=== PATIENT | female | born 1985 | race Caucasian/White ===

== ENCOUNTER → 2016-05-28 | Outpatient (CLI) | payer OTHER ==
[~2016-05-28] MED LIST: CLR10 PO; FERR1TAB23; MULT-506 PO
== END | disposition home or self-care (01) ==
LOC: C.LABSPEC 12:52
PROVIDERS: ATTEND Obstetrics & Gynecology
DX: Z34.93 Encounter for supervision of normal pregnancy, unspecified, third trimester (principal)

== ENCOUNTER 2016-06-08 10:01 | Outpatient (CLI) | payer OTHER ==
[~2016-06-08] VITALS: Ht 157.5 cm; Wt 77.5 kg
[~2016-06-08 10:01] MED LIST changes: -FERR1TAB23
[2016-06-08] MEDS ORDERED: FERR1TAB23 (11:05)
[2016-06-08 11:06] VITALS: Ht 157.5 cm; Wt 77.5 kg
--- NOTE | 2016-06-09 08:18 | EDITING REQUIRED CODING QUERY ---
DIAGNOSIS NEEDED To promote full compliance with coding requirements relating to patient care, physician participation is requested in all cases of modeler uncertainty. Please assist us with the question(s) below: Coding Question: The patient received care in labor and delivery on 06/08/16 as noted within the record. Please document the diagnosis that is being addressed by the medication/treatment. Provider Response: DIAGNOSIS: R/O PROM Thank you for your assistance, Nadeen Shafer - Test Deck Supervisor
== END 2016-06-08 11:50 | disposition home or self-care (01) ==
LOC: C.LD 10:01 → C.OPB 10:01 → EDSTATUS 06-13 10:14
PROVIDERS: ATTEND Obstetrics & Gynecology
DX: Z34.83 Encounter for supervision of other normal pregnancy, third trimester (principal); Z3A.39 39 weeks gestation of pregnancy

== ENCOUNTER 2016-06-13 13:09 | Outpatient (CLI) | payer OTHER ==
[~2016-06-13 13:09] MED LIST changes: -CLR10 PO; +FERR1TAB23
== END 2016-06-13 14:05 | disposition home or self-care (01) ==
LOC: C.OPB 13:09 → C.LD 13:09 → C.OPB 14:05
PROVIDERS: ATTEND Obstetrics & Gynecology
DX: O36.8130 Decreased fetal movements, third trimester, not applicable or unspecified (principal); Z3A.40 40 weeks gestation of pregnancy

== ENCOUNTER 2016-06-19 02:03 | Inpatient (IN) | payer OTHER ==
[~2016-06-19] VITALS: Ht 157.5 cm; Wt 79.0 kg
[2016-06-19] MEDS ORDERED: LACTATED RINGER'S 1000ML 1,000 ML IV SCH (02:37)
[2016-06-19] MEDS ORDERED: LACTATED RINGER'S 1000ML 1,000 ML IV PRN (02:37)
[2016-06-19] MEDS ORDERED: CEFAZOLIN IV 1,000 MG in DEXTROSE 5% 50ML 50 ML IV PRN (02:45)
[2016-06-19 02:57] LABS: HEMATOCRIT 37.9 % (37-47); MEAN CORPUSCULAR HEMOGLOBIN 31.9 pg (25-34); MEAN CORPUSCULAR HGB CONC 35.9 g/dl (32-36); MEAN PLATELET VOLUME 9.2 fL (7.4-10.4); PLATELET COUNT 208 K/uL (130-400); RED BLOOD COUNT 4.26 M/uL (4.2-5.4); WHITE BLOOD COUNT 10.41 K/uL (4.8-10.8)
[2016-06-19] MEDS ORDERED: CEFAZOLIN IV 2,000 MG in DEXTROSE 5% 50ML 50 ML IV ONE (03:00)
[2016-06-19] MEDS ORDERED: EpHEDrine SULFATE INJ 50 MG/ML AMP ONE (03:06)
[2016-06-19] MEDS ORDERED: BUPIVACAINE 0.25% 30 ML VIAL ONE (03:06)
[2016-06-19] MEDS ORDERED: FENTANYL 2MCG/ML ROPIV 1.25MG/ML 100ML BAG EPI ONE (03:06)
[2016-06-19] MEDS ORDERED: FENTANYL CITRATE INJ 50 MCG/1 ML 2 ML VIAL ONE (03:07)
[2016-06-19 03:29] VITALS: Ht 157.5 cm; Wt 79.0 kg
[2016-06-19] MEDS ORDERED: LACTATED RINGER'S 1000ML 500 ML IV PRN ×2 (04:21→07:58)
[2016-06-19] MEDS ORDERED: EpHEDrine SULFATE INJ 50 MG/ML AMP IV PRN (04:30)
[2016-06-19] MEDS ORDERED: FENTANYL 2MCG/ML ROPIV 1.25MG/ML 100ML BAG EPI PRN (04:30)
[2016-06-19] MEDS ORDERED: NALOXONE HCL INJ 0.4 MG/1 ML VIAL/CARP IV PRN (04:30)
[2016-06-19] MEDS ORDERED: OXYTOCIN 30 UNITS/500ML NSS IV PRN ×2 (08:00→11:30)
[2016-06-19] MEDS ORDERED: HYDROCORTISONE ACETATE 25 MG SUPP PR PRN (11:30)
[2016-06-19] MEDS ORDERED: ACETAMINOPHEN 325 MG TAB PO PRN (11:30)
[2016-06-19] MEDS ORDERED: LANOLIN OINT EXT PRN ×2 (11:30)
[2016-06-19] MEDS ORDERED: DIPHTHERIA/TETANUS/PERTUSSIS 0.5 ML SYR/VIAL IM. ONE (11:30)
[2016-06-19] MEDS ORDERED: ACETAMINOPHEN/CODEINE 300/30MG TAB PO PRN ×2 (11:30)
[2016-06-19] MEDS ORDERED: SUPERCREAM 0.870 % 15GM JAR EXT PRN (11:30)
[2016-06-19] MEDS ORDERED: BENZOCAINE 20% AER SPR 82.5 GM CAN EXT PRN (11:30)
--- NOTE | 2016-06-19 12:26 | DELIVERY SUMMARY ---
DATE OF OPERATION: 06/19/2016 FINDINGS: Viable male with Apgars of 8 and 9, baby delivered spontaneously over midline second degree laceration. Nuchal cord x1 reduced on the perineum. Good vigorous cry at terminating meconium resuscitation. Placenta delivered spontaneously. Laceration repaired with 4-0 in a routine fashion. Estimated blood loss was 300 cc. PROCEDURE IN DETAIL: The patient is a 31-year-old 4, para 1 with an EDC of 13 June by date and first trimester ultrasound who was admitted in active labor. The patient states the contractions increased in intensity on the morning of delivery at approximately 0100 hours. She did not rupture of membranes or vaginal bleeding. The patient has had a benign course. Her blood type is O positive, antibody negative, rubella immune, hepatitis B negative. She had a negative quad screen, normal 1 hour Glucola x2 and a positive third trimester beta strep culture. Upon admission, the patient was felt to be in active labor, 3-4 cm dilated with a category 2 tracing. Because of the GBS status, antibiotic prophylaxis was indicated. The patient was PENICILLIN ALLERGIC and was started on Keflex 2 gram loading dose to 1 gram every 8 hours until delivery. The patient requested an epidural and that was inserted. The patient had her first dose of antibiotics, contractions had spaced out. Tracing was again category 2. Because of the secondary arrest of dilatation, artificial rupture of membranes for light meconium and Pitocin was initiated per induction protocol. Over the next 2-1/2 hours, the patient progressed to full dilatation, began her second stage. She pushed for approximately 10 minutes delivering a viable male infant. Nuchal cord x1 reduced on the perineum. Cord gases and cord blood samples obtained. Placenta was delivered spontaneously. Inspection of the perineum showed a midline second degree laceration and midline laceration, this was repaired with 4-0 Vicryl in a routine fashion. Estimated blood loss was 300 mL. Sponge and needle count was correct. I attest to the content of the Intraoperative Record and any orders documented therein. Any exceptio ns are noted below.
[2016-06-19 15:44] VITALS: BP 124/79; PULSE 93; TEMP 36.7
[2016-06-19 15:55] VITALS: BP 114/73; PULSE 91; TEMP 37
[2016-06-19] MEDS: DOCUSATE SODIUM 100 MG CAP PO SCH (20:42)
[2016-06-19] MEDS: IBUPROFEN 600 MG TAB PO PRN (20:43)
--- NOTE | 2016-06-19 20:46 | Discharge Instructions ---
Discharge Instructions Date of Service Jun 19, 2016. Admission Reason for Admission: Normal Labor, Post Term Over 40 Weeks Discharge Discharge Diagnosis / Problem: Spontaneous Vaginal Delivery Discharge Goals Goal(s): Routine recovery after delivery Medications Continue Dispensed Medications: supercream, dermaplast, tucks, lansinoh Activity Recommendations Activity Limitations: per Instructions/Follow-up section . Instructions / Follow-Up Instructions / Follow-Up ACTIVITY RECOMMENDATIONS: * Gradual return to full activity over the next 2-3 weeks. * No lifting - nothing heavier than baby over the next 2-3 weeks. * Do not engage in vigorous exercise, sexual activity or sports until cleared by your physician. * Do not drive or operate any motorized equipment until cleared by your physician. * You may shower/bathe daily. MEDICATIONS: For discomfort or pain, you may use Acetaminophen (Tylenol), Ibuprofen (Advil), or Naproxen (Aleve) following the package directions. For constipation you may use Colace following the package directions. BREAST CARE: If you are not breast feeding: * Wear a supportive bra 24 hours a day for one to two weeks. * Avoid stimulating your breasts and nipples as much as possible during the first few weeks after delivery. * When taking a shower, have the warm water hit your back, not breasts. * When your breasts feel full, apply ice packs. Usually three to four times a day helps ease the discomfort. * Take a mild pain medication (Tylenol / Motrin) when you are uncomfortable. If breast feeding: * Use breast milk to lubricate nipples. Lansinoh cream may be used for sore nipples. You do not need to remove cream prior to breast feeding. If using a different brand of cream, check the label for directions regarding removal of cream prior to nursing. * Wear a supportive bra. * If having problems with breasts or breast feeding, call a it security consultant or your health care provider. EPISIOTOMY CARE: After delivery, if you have an episiotomy (stitches), the following steps will ease discomfort and aid healing. * For the first 24 hours after delivery, place ice packs next to your episiotomy to help reduce swelling. * After the first 24 hour-period, sitz baths, either portable or in the tub, are suggested. A shower with a shower arm sprayed over the episiotomy may be comforting. * Sandra care should be done after each voiding and bowel movement. Squirt warm water from a plastic bottle over the perineum (region of the body between the anus and urinary opening) and pat dry. * Use Dermoplast to ease discomfort. Shake container. [place] directly over the episiotomy. Place a Tucks on a clean sanitary pad next to your episiotomy. SPECIAL CARE INSTRUCTIONS: When you are discharged from the hospital, it is important for you to follow the instructions listed below: * During the first week at home, you should be able to care for yourself and your baby. In addition, the usual light household activities are encouraged. * Limit your activities to the way you feel. Do not try to clean the house or move furniture. Be sensible. * If you actively engage in sports and have done so up until the time of your delivery, you may resume these activities as soon as you feel able. This may take up to one month or even longer. Use good judgment. * Continue to take your vitamins for at least six weeks after the of your baby. * Your diet need not be limited unless you were on a special diet before your delivery. Breast-feeding mothers need around 2500 calories per day and at least 64-80 ounces of fluid per day (8 to 10 glasses). * You should eat foods from the four major food groups. Crash diets or fad diets are to be avoided. Eating lean meats, fresh fruits and vegetables, low-fat dairy products, high fiber foods and a regular exercise program, will help you get back to your pre- weight without putting your health at risk. * Constipation is sometimes a problem after delivery. Take a mild laxative as needed. If breast feeding, Milk of Magnesia is acceptable to use. You may use a suppository or Fleets enema if no episiotomy. * A daily shower or tub bath is suggested. Be sure to thoroughly and gently dry the perineum. * A bloody vaginal discharge will usually continue until around four weeks post . A small amount of bleeding may continue for as long as six weeks. Vaginal discharge changes from the bright red bleeding after delivery to pink then brownish and finally yellowish-pink before becoming white and disappearing. * Bleeding may increase with activity. Your first period may come in 4-8 weeks. If you are breast feeding, your period may be delayed even longer. * Stem (sex) can begin whenever both you and your partner feel comfortable and do not have any form of genital infection. It is recommended that you wait at least six weeks for internal and external healing to occur. If you have questions, please talk to your health care practitioner. A condom should be used to prevent infection and . * Foreplay, gentle intercourse and lubrication is very important the first several times to prevent pain. A water-based lubricant such as K-Y jelly or Astroglide may be used. * If you have RH negative blood and your baby is RH positive, you will receive RHOGAM by injection prior to discharge. The nurse will give you a card to keep with you that has the date and place that you received RHOGAM after delivery. * During your care, you had a Rubella screen done to check for the presence of rubella antibodies in your blood. If your test was negative, you will receive a Rubella vaccine prior to discharge. This vaccine may cause a fever, soreness at the injection site and flu-like symptoms. If these symptoms persist, notify your health care practitioner. is not advised for one month after a Rubella vaccine. * Verbalizes understanding of car seat law as reviewed with patient nursing. * Car Seat hand-out given and reviewed with patient by nursing. * Shaken baby information reviewed with patient by nursing. Call you doctor if: * Heavy bleeding (saturating several pads an hour) or passing clots the size of your fist. * A fever >101 degrees F (38.3 degrees C) on two occasions four hours apart and /or chills. * Unusual pain in the pelvic or vaginal areas. * "Baby Blues" lasting longer than two weeks. If you have any questions or concerns, call your health care practitioner at . FOLLOW UP VISIT: * Please call the office at to schedule a 6 week examination. It is important you keep this appointment. It is important for you to make arrangements for either yearly or twice yearly check-ups thereafter. Current Hospital Diet Patient's current hospital diet: Regular OB Diet Discharge Diet Recommended Diet: Regular Diet Pending Studies Studies pending at discharge: no Medical Emergencies . Who to Call and When: Medical Emergencies: If at any time you feel your situation is an emergency, please call 911 immediately. . Non-Emergent Contact Non-Emergency issues call your: Primary Care Provider, Lead Carpenter . . "Provider Documentation" section prepared by Miguel Angel Wu. VTE Core Measure Inpt VTE Proph given/why not?: Treatment not indicated
--- NOTE | 2016-06-19 21:34 | Anesthesia Procedure Note ---
Anesthesia Epidural Removal Nt Date & Time Jun 19, 2016 at 21:34 Vital Signs Pain Intensity: 3.0 Vital Signs Past 12 Hours Date Time Temp Pulse Resp B/P Pulse Ox O2 Delivery O2 Flow Rate FiO2 06/19/16 15:55 37.0 91 18 114/73 Room Air 06/19/16 15:55 Room Air 06/19/16 15:44 36.7 93 18 124/79 Room Air High Flow Oxygen Notes Mental Status: alert / awake / arousable, participated in evaluation Nausea / Vomiting: adequately controlled Pain: adequately controlled Airway Patency, RR, SpO2: stable & adequate BP & HR: stable & adequate Hydration State: stable & adequate Neuraxial Anesthesia: was administered Anesthetic Complications: no major complications apparent, pt satisfied with anesthetic care Epidural: removed without complications, with tip intact
[2016-06-20] VITALS: BP 104/60; PULSE 83; TEMP 36.4; O2SAT 95
[2016-06-20 04:40] VITALS: BP 107/71; PULSE 82; TEMP 36.5; O2SAT 96
[2016-06-20 06:45] LABS: HEMATOCRIT 36.4 % (37-47)
--- NOTE | 2016-06-20 07:15 | Progress Note ---
Subjective Jun 20, 2016. Subjective conversation w/ patient, physical exam Ambulation: ambulating normally Voiding: no voiding problems Passing Gas: Yes Diet Tolerance: Regular Diet Lochia: Small Feeding Type: Bottle Feeding Review of Systems Constitutional: No chills, No fever Respiratory: No cough, No shortness of breath Cardiac: No chest pain, No palpitations Objective Vital Signs Date Time Temp Pulse Resp B/P Pulse Ox O2 Delivery O2 Flow Rate FiO2 06/20/16 04:40 36.5 82 16 107/71 96 Room Air 06/20/16 00:00 95 Room Air 06/20/16 00:00 36.4 83 16 104/60 95 Room Air 06/19/16 15:55 37.0 91 18 114/73 Room Air 06/19/16 15:55 Room Air 06/19/16 15:44 36.7 93 18 124/79 Room Air High Flow Oxygen Physical Exam General Appearance: WELL-APPEARING, NO APPARENT DISTRESS Respiratory/Chest: lungs clear, no respiratory distress Cardiovascular: regular rate, rhythm, no murmur Abdomen: non tender, soft Fundus: Firm, Non-Tender, Relation to Umbilicus (at the umbilicus) Extremities: non-tender, no calf tenderness Laboratory Results Last 24 Hours Test 06/20/16 06:04 Hemoglobin 12.8 g/dL Hematocrit 36.4 % Assessment and Plan Post- Day#: 1 Continue Routine Care: s/p Day 1 - vital signs reviewed and wnl - Hgb reviewed and 12.8 today - Blood: O+, GBS+, Rubella immune - Encourage ambulation, encourage fluid intake and monitor lochia - Patient doing well clinically - CONTINUE ROUTINE POST CARE Resident Physician Supervision Note: I interviewed and examined the patient. Discussed with Dr. Wu and agree with findings and plan as documented in the note. Any exceptions or clarifications are listed here: [None] Documented By: Joshua Felder
[2016-06-20 08:09] VITALS: BP 113/69; PULSE 73; TEMP 36.5
[2016-06-20] MEDS: DOCUSATE SODIUM 100 MG CAP PO SCH ×2 (08:54→20:13)
[2016-06-20] MEDS: PRENATAL VITAMIN TAB PO SCH (08:54)
[2016-06-20] MEDS: FERROUS SULFATE 325 MG TAB PO SCH (08:54)
[2016-06-20 15:30] VITALS: BP 121/75; PULSE 85; TEMP 36.5
[2016-06-20] MEDS ORDERED: BISACODYL 5 MG TABEC PO SCH (20:00)
[2016-06-20] MEDS: IBUPROFEN 600 MG TAB PO PRN (20:13)
[2016-06-20 23:15] VITALS: BP 108/63; PULSE 81; TEMP 36.4; O2SAT 97
[2016-06-21 07:48] VITALS: BP 128/79; PULSE 77; TEMP 36.8
[2016-06-21] MEDS: FERROUS SULFATE 325 MG TAB PO SCH (08:30)
[2016-06-21] MEDS: DOCUSATE SODIUM 100 MG CAP PO SCH (08:30)
[2016-06-21] MEDS: PRENATAL VITAMIN TAB PO SCH (08:30)
--- NOTE | 2016-06-21 08:53 | Progress Note ---
Subjective Jun 21, 2016. Subjective conversation w/ patient, physical exam Ambulation: ambulating normally Voiding: no voiding problems Passing Gas: Yes Diet Tolerance: Regular Diet Lochia: Moderate Feeding Type: Bottle Feeding Pain: controlled Comment: Feeling well, no complaints. Review of Systems Constitutional: No problem reported Respiratory: No problem reported Cardiac: No problem reported Breast: No problem reported Abdomen: No problem reported Female : No problem reported Objective Vital Signs Date Time Temp Pulse Resp B/P Pulse Ox O2 Delivery O2 Flow Rate FiO2 06/21/16 07:48 36.8 77 18 128/79 Room Air 06/20/16 23:15 36.4 81 20 108/63 97 Room Air 06/20/16 23:15 97 Room Air 06/20/16 15:30 Room Air 06/20/16 15:30 36.5 85 20 121/75 Room Air Physical Exam General Appearance: WELL-APPEARING, NO APPARENT DISTRESS Respiratory/Chest: no respiratory distress Cardiovascular: regular rate, rhythm Abdomen: non tender, soft Fundus: Firm Extremities: normal inspection Assessment and Plan Post- Day#: 2 Continue Routine Care: PPD#2 - ready for discharge home. Doing well. Discharge instructions reviewed, questions answered. Followup in office 6 weeks . Discharge to home today.
[2016-06-21 10:50] VITALS: BP_DIAS 79; PULSE 77; TEMP 36.8
== END 2016-06-21 10:50 | disposition home or self-care (01) | DRG 775 ==
LOC: C.OPB 02:03 → C.LD 02:03 → C.OPB 02:43 → C.OBG 15:34
PROVIDERS: ADMIT Obstetrics & Gynecology; ATTEND Obstetrics & Gynecology
PROC: 0HQ9XZZ Repair Perineum Skin, External Approach (ICD-10-PCS; principal; 2016-06-19)
PROC: 10907ZC Drainage of Amniotic Fluid, Therapeutic from Products of Conception, Via Natural or Artificial Opening (ICD-10-PCS; principal; 2016-06-19)
PROC: 10E0XZZ Delivery of Products of Conception, External Approach (ICD-10-PCS; principal; 2016-06-19)
DX: O99.824 Streptococcus B carrier state complicating childbirth (principal); O70.1 Second degree perineal laceration during delivery; O69.81X0 Labor and delivery complicated by cord around neck, without compression, not applicable or unspecified; Z37.0 Single live birth; Z3A.40 40 weeks gestation of pregnancy

== ENCOUNTER → 2016-11-26 | Outpatient (CLI) | payer OTHER ==
[2016-11-26 12:33] LABS: CHOLESTEROL/HDL RATIO 4.2
== END | disposition home or self-care (01) ==
LOC: C.LAB 10:31
PROVIDERS: ATTEND Physician Assistant
DX: Z13.220 Encounter for screening for lipoid disorders (principal); Z13.1 Encounter for screening for diabetes mellitus

== ENCOUNTER → 2017-11-30 | Outpatient (CLI) | payer OTHER | END | disposition home or self-care (01) | LOC: C.LAB 07:53 | PROVIDERS: ATTEND Family Medicine | DX: Z13.1 Encounter for screening for diabetes mellitus (principal); Z13.220 Encounter for screening for lipoid disorders ==

== ENCOUNTER 2019-05-19 07:28 | Inpatient (IN) ==
[2019-05-19] MEDS ORDERED: OXYTOCIN 30 UNITS/500 ML BAG IV PRN ×3 (08:22→16:50)
[2019-05-19] MEDS ORDERED: CEFAZOLIN 2000MG 2,000 MG/15 ML SYR IV ONE (08:45)
[2019-05-19 08:53] LABS: Hemoglobin 10.7 g/dL (12.0-16.0); Mean Corpuscular Hemoglobin 25.5 pg (25-34); Mean Platelet Volume 9.3 fL (7.4-10.4); Platelet Count 334 K/uL (130-400); RDW Coefficient of Variation 16.5 % (11.5-14.5); RDW Standard Deviation 48.2 fL (36.4-46.3); White Blood Count 9.21 K/uL (4.8-10.8)
[2019-05-19 08:56] LABS: Mean Corpuscular Hgb Conc 31.5 g/dL (32-36)
[2019-05-19] MEDS: LACTATED RINGER'S 1,000 ML IV PRN ×3 (08:57→15:44)
--- NOTE | 2019-05-19 09:20 | History & Physical Report ---
Date of Service May 19, 2019 Assessment & Plan (1) Supervision of elderly multigravida: Lee Ann is a 34 yo at 40w 2d with SROM - will treat with Ancef for GBS status (patient allergic to penicillin) - will start pitocin for contraction augmentation - despite firm, minimally dilated cervix, patient not a candidate for prostaglandin given contraction frequency - patient would like epidural when contractions become painful - anticipate History of Present Illness Primary Care Provider: PT DECLINED Lee Ann is a 34 yo with NITHIN of 05/17/19, currently at 40w 2d (dated via LPM) who presents to labor and delivery with SROM at 4:30AM. Only complication with this is AMA for which patient has been getting NSTs weekly since 36 weeks. Only medication is PNV. Feeling contractions irregularly. Feeling movement. Had some vaginal spotting this morning. Labs Blood type: O+ Antibody Screen: neg H.7 Hct: 34 Plt: 334 Rubella: immune VDRL/RPR: non-reactive Gonorrhea: neg Chlamydia: neg GBS: + HIV: neg HbsAq: neg Glucose Tolerance x2: normal Allergies Allergy/AdvReac Type Severity Reaction Status Date / Time latex Allergy Severe ANAPHYLAXIS Verified 05/19/19 08:01 penicillin V Allergy Unknown RASH Verified 05/19/19 08:01 kiwi Allergy Difficulty Verified 05/19/19 08:01 Breathing Home Medications Home Medications Medication Instructions Recorded Confirmed Type epinephrine [EpiPen] 0.3 mg IM Q15M PRN #2 ea 03/30/18 05/19/19 Rx prenat.vits,reinaldo,[id number] 1 tab PO DAILY 11/29/18 05/19/19 History Patient History Medical History 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) Endometriosis Female fertility problem Fertility testing Hx of ectopic (Inactive) Hx of ectopic Hx of endometriosis Hx of varicella Post term over 40 weeks (Resolved 01/09/14) with history of spontaneous Urinary tract infection Surgical History History of salpingectomy for Ectopic Hx of oral surgery Family History Father Cardiac disorder Diabetes Hypertension Heart disease Other Family history non-contributory Social History Preferred Language: Cym[place] 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 Required: No Beliefs That Will Affect Care: None marital status: Current Living Situation: Spouse and Family Current Living Situation Comment: 2 boys and spouse Other Information That Helps Us Care for You: No Feels Safe at Home: Yes Safety Concerns: Feels Safe At This Time Smoking Status: Never smoker Hx Alcohol Use: No Hx Substance Use: No Review of Systems no fever, no chills and no sweats no worsening vision no cough and no dyspnea no chest pain, no palpitations and no calf pain no nausea, no vomiting, no constipation and no diarrhea/loose stools no dysuria and no urinary frequency Physical Exam Constitutional: WD/WN, vitals as above Eyes: + anicteric sclerae Neck: normal visual inspection Respiratory: normal respiratory effort, lungs clear to auscultation does not use accessory muscles Auscultation: no crackles, no rales, no wheezes and no pleural rub Cardiovascular: Rate/Rhythm: regular rate and regular rhythm Heart Sounds: normal S1 and normal S2; no gallop, no murmur and no cardiac rub Gastrointestinal (Abdomen): Gravid. Uterus at term; + heart tones; vertex position, EFW 7-8 lbs Neurologic: awake; no focal motor deficits Psychiatric: A+Ox3, euthymic affect Genitourinary: OB Exam Monitor Tracing: + external FHT monitor used Cervical Exam: 1 cm/ 0 % effacement/-3 station, mid, firm and posterior Results & Data Vital Signs (Past 12 Hours) Vital Signs Temp Pulse Resp BP 05/19/19 09:00 81 124/72 05/19/19 07:42 36.6 C 20 05/19/19 07:41 86 137/77 Monitoring External Monitor Baseline HR: 140 bpm Variability: moderate Accelerations: 2 in 20 min Decelerations: none Category I Tocodynamometer Contractions: occurring irregularly on monitor Supervising Physician Co-Signing Physician Notes Resident Physician Supervision Note: I interviewed and examined the patient. Discussed with Dr. Addison and agree with findings and plan as documented in the note. Any exceptions or clarifications are listed here: Patient is a 34yowf who presents with PROM. By time of admission , is 4+ hours from srom. Cx as noted. Unfortunately dianna too frequently for cytotec for cervical ripening. Given a multip, plan to just go with pitocin for induction. Fetus catgory one. GBS positive--was positive in second and received ancef without issues. Plan this again. Epidural on demand. Anticipate . Fluid clear. Documented By: Sarah Castillo MD, FACOG Resident Activity Tracking Resident Involvement: Resident Care Provided Care Provided: OB Delivery
[2019-05-19] MEDS ORDERED: Nursing to Pharmacy Communication ONE ×2 (11:17→20:58)
[2019-05-19] MEDS ORDERED: fentaNYL citrate 100 MCG/2 ML VIAL ONE (11:27)
[2019-05-19] MEDS ORDERED: BUPIVACAINE 0.25% 30 ML VIAL ONE (11:27)
[2019-05-19] MEDS ORDERED: ePHEDrine sulfate 50 MG/ML AMP ONE (11:27)
[2019-05-19] MEDS ORDERED: fentaNYL 2MCG/ML ROPIV 1.25MG/ML 100 ML BAG EPI ONE (11:28)
[2019-05-19] MEDS ORDERED: DiphenhydrAMINE HCL 50 MG/ML VIAL IV PRN (11:59)
[2019-05-19] MEDS ORDERED: NALBUPHINE HCL INJ 10 MG/ML AMP IV PRN (11:59)
[2019-05-19] MEDS ORDERED: ONDANSETRON INJ 2 MG/ML 2 ML VIAL IV PRN (11:59)
[2019-05-19] MEDS ORDERED: NALOXONE HCL 0.4 MG/1 ML VIAL/CARP IV PRN (11:59)
[2019-05-19] MEDS ORDERED: ePHEDrine sulfate 50 MG/ML AMP IV PRN (11:59)
[2019-05-19] MEDS ORDERED: fentaNYL 2MCG/ML ROPIV 1.25MG/ML 100 ML BAG EPI PRN (11:59)
[2019-05-19] MEDS ORDERED: NALOXONE HCL 1 MG in SODIUM CHLORIDE 0.9% 1000ML 1,000 ML IV PRN (11:59)
--- NOTE | 2019-05-19 12:01 | Anesthesiology Consultation ---
Date of Service May 19, 2019 Assessment & Plan Chart Review Chart Review: Patient NOT seen in Pre Admission Testing and Acceptable Risk for Labor Epidural Consults Requested none ASA ASA2 Proposed Anesthesia Anesthesia Type: Labor Epidural and CSE Risk / Benefits Reviewed With: PT / POA / Parent / Guardian, Accepts Plan and Informed Consent Obtained History Height/Weight Height: 5 ft 2 in Weight: 83.915 kg Allergies Allergy/AdvReac Type Severity Reaction Status Date / Time latex Allergy Severe ANAPHYLAXIS Verified 05/19/19 08:01 penicillin V Allergy Unknown RASH Verified 05/19/19 08:01 kiwi Allergy Difficulty Verified 05/19/19 08:01 Breathing Medications Home Medications Medication Instructions Recorded Confirmed Last Taken epinephrine [EpiPen] 0.3 mg IM Q15M PRN #2 ea 03/30/18 05/19/19 Unknown prenat.vits,reinaldo,[id number] 1 tab PO DAILY 11/29/18 05/19/19 05/18/19 06:00 Active Medications Generic Name Dose Route Start Last Admin Trade Name Freq PRN Reason Stop Dose Admin Lactated Ringer's 1,000 mls @ 125 mls/hr 05/19/19 08:22 05/19/19 11:28 Lr IV 05/21/19 08:21 999 mls/hr .Q8H PRN Infusion L&D Protocol Protocol Oxytocin 30 units in 500 mls @ 9 mls/hr 05/19/19 08:26 05/19/19 11:05 Pitocin IV 05/21/19 08:25 0.54 units/hr .Q24H PRN 9 mls/hr Labor Induction/Augmentation Titration Protocol 0.54 UNITS/HR NPO Date Last Intake of Fluids: 05/19/19 Time Last Intake of Fluids: 09:00 Date Last Intake of Solids: 05/19/19 Time Last Intake of Solids: 09:00 Past Medical History Medical History 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) Endometriosis Female fertility problem Fertility testing Hx of ectopic (Inactive) Hx of ectopic Hx of endometriosis Hx of varicella Post term over 40 weeks (Resolved 01/09/14) with history of spontaneous Urinary tract infection Exercise / Class Metabolic Activity II 4-5 Yardwork/Stairs/Walk up hill Past Family History Family History Father Cardiac disorder Diabetes Hypertension Heart disease Other Family history non-contributory Past Surgical History Surgical History History of salpingectomy for Ectopic Hx of oral surgery Past Anesthesia History No Hx of Anesthesia Complications and No Family Hx of Anesthesia Complications History of PONV No Hx of PONV and No Hx of Motion Sickness Social History Smoking Status: Never smoker Hx Alcohol Use: No Hx Substance Use: No Review of Systems no chest pain or sob Physical Exam Vital Signs Last Vital Signs Temp 36.8 C 05/19/19 11:38 Pulse 75 05/19/19 11:58 Resp 20 05/19/19 11:38 BP 140/80 05/19/19 11:03 Pulse Ox 99 05/19/19 11:58 ENMT Mouth: no TMJ abnormality Thyromental Distance: > or= 3.5 Finger Breadths Mallampati Class: II Neck normal visual inspection Respiratory normal respiratory effort Auscultation: lungs clear to auscultation bilaterally Cardiovascular Rate/Rhythm: regular rate and regular rhythm Musculoskeletal Spine: normal cervical ROM Neurologic moves all extremities Psychiatric Orientation: alert and oriented x 3 Testing Laboratory Results 05/19/19 08:32
--- NOTE | 2019-05-19 12:58 | Labor Progress Brief Note ---
Date of Service May 19, 2019 Subjective comfortable after epidural Assessment & Plan (1) PROM (premature rupture of membranes): making progress, continue pitocin, fetus category one for the most part. anticipate . Physical Exam Constitutional: WD/WN, vitals as above Psychiatric: A+Ox3, euthymic affect Genitourinary: cx--3/50/-2 toco--q2-4min, pit at 11 efm--135 with mod varability, accels present, occasional early/variable Results & Data Vital Signs (Past 12 Hours) Vital Signs Temp Pulse Resp BP Pulse Ox 05/19/19 12:53 88 100 05/19/19 12:51 100 H 123/73 05/19/19 12:48 72 99 05/19/19 12:46 95 H 116/64 05/19/19 12:43 72 99 05/19/19 12:41 96 H 117/64 05/19/19 12:38 84 99 05/19/19 12:36 77 118/66 05/19/19 12:33 79 99 05/19/19 12:32 94 H 111/60 05/19/19 12:28 85 99 05/19/19 12:26 98 H 126/70 05/19/19 12:23 100 H 99 05/19/19 12:20 86 128/68 05/19/19 12:18 78 129/65 99 05/19/19 12:16 83 128/62 05/19/19 12:13 85 99 05/19/19 12:08 87 157/73 H 99 05/19/19 12:03 82 100 05/19/19 11:58 75 99 05/19/19 11:53 84 99 05/19/19 11:48 85 99 05/19/19 11:43 78 99 05/19/19 11:38 36.8 C 20 05/19/19 11:03 90 140/80 05/19/19 10:04 79 145/79 H 05/19/19 09:30 36.8 C 20 05/19/19 09:00 81 124/72 05/19/19 07:42 36.6 C 20 05/19/19 07:41 86 137/77 Coding Level of Care Code None Diagnoses PROM (premature rupture of membranes) O42.90
[2019-05-19] MEDS ORDERED: CEFAZOLIN 3000MG/72.5 ML BAG IV SCH (14:00)
[2019-05-19] MEDS ORDERED: CEFAZOLIN 3,000 MG in DEXTROSE 5% 50 ML IV SCH (14:00)
--- NOTE | 2019-05-19 14:32 | Obstetrical Progress Note ---
Date of Service May 19, 2019 Subjective Comfortable with epidural. FHT 140s mod danis, +early decels. No accels. [place] Q2 min. Anticipate . Results & Data Vital Signs (Past 12 Hours) Vital Signs Temp Pulse Resp BP Pulse Ox 05/19/19 14:28 78 119/63 100 05/19/19 14:23 79 126/58 L 100 05/19/19 14:18 83 100 05/19/19 14:17 78 107/55 L 05/19/19 14:16 20 05/19/19 14:14 85 129/58 L 05/19/19 14:13 90 100 05/19/19 14:08 87 99 05/19/19 14:06 85 107/55 L 05/19/19 14:03 77 100 05/19/19 14:02 77 110/56 L 05/19/19 14:00 20 05/19/19 13:58 74 107/58 L 99 05/19/19 13:53 92 H 99 05/19/19 13:52 80 106/55 L 05/19/19 13:48 89 100 05/19/19 13:47 85 109/56 L 05/19/19 13:46 20 05/19/19 13:44 36.9 C 16 05/19/19 13:43 96 H 98 05/19/19 13:42 82 122/71 05/19/19 13:38 66 98 05/19/19 13:36 65 119/69 05/19/19 13:33 69 98 05/19/19 13:31 76 113/67 05/19/19 13:30 20 05/19/19 13:28 65 115/68 98 05/19/19 13:23 76 117/68 98 05/19/19 13:18 99 H 99 05/19/19 13:16 69 20 119/70 05/19/19 13:13 73 99 05/19/19 13:11 86 117/69 05/19/19 13:08 70 98 05/19/19 13:06 68 119/71 05/19/19 13:03 67 99 05/19/19 13:01 94 H 120/66 05/19/19 13:00 20 05/19/19 12:58 67 99 05/19/19 12:56 68 126/64 05/19/19 12:53 88 100 05/19/19 12:51 100 H 123/73 05/19/19 12:48 72 99 05/19/19 12:46 95 H 20 116/64 05/19/19 12:43 72 99 05/19/19 12:41 96 H 117/64 05/19/19 12:38 84 99 05/19/19 12:36 77 118/66 05/19/19 12:33 79 99 05/19/19 12:32 94 H 111/60 05/19/19 12:30 20 05/19/19 12:28 85 99 05/19/19 12:26 98 H 126/70 05/19/19 12:23 100 H 99 05/19/19 12:20 86 128/68 05/19/19 12:18 78 129/65 99 05/19/19 12:16 83 128/62 05/19/19 12:13 85 99 05/19/19 12:08 87 157/73 H 99 05/19/19 12:03 82 100 05/19/19 11:58 75 99 05/19/19 11:53 84 99 05/19/19 11:48 85 99 05/19/19 11:43 78 99 05/19/19 11:38 36.8 C 20 05/19/19 11:03 90 140/80 05/19/19 10:04 79 145/79 H 05/19/19 09:30 36.8 C 05/19/19 09:00 81 124/72 05/19/19 07:42 36.6 C 05/19/19 07:41 86 137/77 PG Care Time/CCT Total # of Minutes Spent Total Time Spent with Patient: Total time spent is greater than 50% in coordination of care (as documented) at patient's floor/unit and/or counseling patient: Coding Level of Care Code None
[2019-05-19] MEDS ORDERED: CEFAZOLIN 1000MG 1,000 MG/7.5 ML SYR IV SCH (16:00)
--- NOTE | 2019-05-19 16:31 | Anesthesia Procedure Note ---
Date of Service May 19, 2019 Anesthesia Post Epidural Note Vital Signs Vital Signs: Temp Pulse Resp BP Pulse Ox 36.4 C L 76 20 135/61 100 05/19/19 15:46 05/19/19 16:22 05/19/19 15:46 05/19/19 16:22 05/19/19 16:03 Notes Mental Status: alert / awake / arousable and participated in evaluation Nausea / Vomiting: adequately controlled Pain: adequately controlled Airway Patency, RR, SpO2: stable & adequate BP & HR: stable & adequate Hydration State: stable & adequate Neuraxial Anesthesia: was administered and sensory block is resolving Anesthetic Complications: no major complications apparent and Pt Satisfied with anesthetic care Epidural: Removed without complications and With tip intact
--- NOTE | 2019-05-19 16:32 | Delivery Summary ---
Vaginal Delivery Summary Date of Service May 19, 2019 Vaginal Delivery Summary Vaginal Delivery Summary: Pre-delivery diagnoses: 34yo @ 40 2/, PROM, GBS+, stress urinary incontinence Post-delivery diagnoses: same, velamentous insertion of cord Procedure: spontaneous vaginal delivery, repair of 1st degree perineal laceration Surgeon: Soraya Echevarria DO Complications: none Findings: Viable male . Apgars: 8/9. Weight pending, please see nursery records Estimated blood loss: 300ml Description of delivery: The patient progressed to complete with epidural anesthesia. She then began to push. She spontaneously vaginally delivered a viable from the cephalic presentation. The head delivered in SHARITA position. The anterior shoulder delivered, followed by the posterior shoulder, followed by the body. The baby was placed on mother's abdomen and a spontaneous cry was heard. Delayed cord clamping was employed, and the cord was doubly clamped and cut. Cord blood was obtained. The placenta was delivered spontaneously intact with a 3-vessel cord. The uterus and vagina were swept of clots and debris. IV pitocin was given. The uterus became firm. The cervix, vagina, and perineum were inspected and a first degree perineal laceration was noted and repaired in standard fashion with 3-0 vicryl. Excellent hemostasis was observed. The mother and baby are recovering in stable and good condition in the room. Sponge and instrument counts were correct x 2. Soraya Echevarria DO [facility] Vaginal Delivery Charge Vaginal Delivery Codes: 56387 global code for the antepartum, delivery, and post-
[2019-05-19] MEDS ORDERED: ACETAMINOPHEN 325 MG TAB PO PRN (16:50)
[2019-05-19] MEDS ORDERED: BENZOCAINE 20% AER SPR 82.5 GM CAN EXT PRN (16:50)
[2019-05-19] MEDS ORDERED: DIPHTHERIA/TETANUS/PERTUSSIS 0.5 ML SYR/VIAL IM ONE (16:50)
[2019-05-19] MEDS ORDERED: HYDROCORTISONE ACETATE 25 MG SUPP PR PRN (16:50)
[2019-05-19] MEDS ORDERED: bisacodyL 10 MG SUPP PR PRN (16:50)
[2019-05-19] MEDS ORDERED: IBUPROFEN 600 MG TAB PO PRN (16:50)
[2019-05-19] MEDS ORDERED: SUPERCREAM 0.870% 15 GM JAR EXT PRN (16:50)
[2019-05-19] MEDS ORDERED: EPINEPHRINE ADULT AUTO-INJECT 0.3 MG SYR IM PRN (16:50)
[2019-05-19] MEDS: DOCUSATE SODIUM 100 MG CAP PO SCH (20:44)
--- NOTE | 2019-05-20 06:23 | Obstetrical Progress Note ---
Date of Service May 20, 2019 Assessment & Plan (1) Status post vaginal delivery: Lee Ann is a 34 yo on PPD 1 after at 40w - GBS +, treated with Ancef at delivery. Rh+, Rubella immune - Vitals reviewed and WNL - patient is doing clinically well Discharge instructions reviewed. - After discharge will have [address] Echevarria. Supervising Physician Co-Signing Physician Notes Resident Physician Supervision Note: I was present with Dr. Addison during the history and exam. I discussed the case with the resident and agree with the findings and plan as documented in the note. Any exceptions or clarifications are listed here: PPD#1 doing well. OK for discharge today from obstetric perspective, her discharge will depend on whether baby is discharged (GBS+ mother). Documented By: Soraya Echevarria, Subjective Ambulation: ambulating normally Voiding: no voiding problems Passing Gas:: Yes Diet Tolerance:: regular diet Lochia:: Small Feeding Type:: breast feeding Review of Systems Constitutional: no fever, no chills and no sweats Eyes: no worsening vision Respiratory: no cough and no dyspnea Cardiovascular: no chest pain, no palpitations, no edema and no calf pain Gastrointestinal: no nausea and no vomiting Genitourinary: no dysuria and no urinary frequency Neurologic: no headache(s) Physical Exam Constitutional: WD/WN, vitals as above no acute distress Respiratory: normal respiratory effort, lungs clear to auscultation does not use accessory muscles Auscultation: no crackles, no rales, no rhonchi, no wheezes and no pleural rub Cardiovascular: Rate/Rhythm: regular rate and regular rhythm Heart Sounds: normal S1 and normal S2; no gallop, no murmur and no cardiac rub Extremities: no calf tenderness and no pedal edema Gastrointestinal (Abdomen): Inspection/Auscultation: normal bowel sounds; abdomen not distended Percussion/Palpation: abdomen soft Genitourinary: Uterus: fundus firm, palpable 1 cm below the umbilicus Results & Data Vital Signs (Past 12 Hours) Vital Signs Temp Pulse Pulse Resp BP BP Pulse Ox 05/20/19 03:39 36.6 C 75 20 116/76 99 05/19/19 23:10 36.5 C 70 20 108/72 98 05/19/19 19:35 36.6 C 89 18 127/79 05/19/19 18:37 135/75 05/19/19 18:30 36.7 C 20 05/19/19 18:22 89 126/73 Resident Activity Tracking Resident Involvement: Resident Care Provided Care Provided: OB Delivery
[2019-05-20 07:07] LABS: Hematocrit (blood only) 31.4 % (37-47); Hemoglobin 10.2 g/dL (12.0-16.0); Mean Corpuscular Hgb Conc 32.5 g/dL (32-36); Mean Corpuscular Volume 79.9 fL (80-100); Mean Platelet Volume 9.1 fL (7.4-10.4); Platelet Count 295 K/uL (130-400); RDW Coefficient of Variation 16.6 % (11.5-14.5); Red Blood Count 3.93 M/uL (4.2-5.4); White Blood Count 11.51 K/uL (4.8-10.8)
[2019-05-20] MEDS ORDERED: PRENATAL VITAMIN 1 TAB PO SCH (08:00)
[2019-05-20] MEDS ORDERED: NON-FORMULARY MEDICATION (Prenat.Vits,Cal,Min-Iron-Folic 1 TAB) PO SCH (09:00)
[2019-05-20] MEDS: DOCUSATE SODIUM 100 MG CAP PO SCH (09:13)
[2019-05-20] MEDS ORDERED: bisacodyL 5 MG TABEC PO SCH (20:00)
== END 2019-05-20 17:04 | disposition home or self-care (01) | DRG 807 ==
LOC: OPB 07:28 → 4S1 07:30 → 4S2 19:10

== ENCOUNTER 2022-10-30 13:38 | Observation (INO) ==
--- NOTE | 2022-10-30 14:13 | Emergency Department Note ---
History of Present Illness General Chief complaint: Knee Injury/Pain Stated complaint: LT KNEE INJURY Time Seen by Provider: 10/30/22 13:52 History of Present Illness 37-year-old female who presents to the emergency department for evaluation of left knee pain. Patient was seen and evaluated on 10/29 in this ED for injury to her left knee when her rooster scratched her. X-rays at that time were negative for fracture or dislocation. She did have 2 small wounds to the lateral aspect of the knee without signs of infection. She was prescribed mupirocin ointment to prevent local infection which she has been using daily. She has also been taking Tylenol for pain. She followed up with her PCP today due to continued pain mostly with ambulation. They prescribed her a course of Keflex for soft tissue infection and referred her to [facility] [address] orthopedics for further evaluation. Reportedly, they recommended drainage of her fusion and culture. She was referred to the ED to have this obtained. Patient denies fever/chills, nausea/vomiting, numbness/tingling into the distal extremity. She denies previous injury or surgeries to this knee. She is up-to-date on her tetanus vaccination. She notes an allergy to penicillins. She is currently 34 weeks . Home Medications Medication Instructions Recorded Confirmed Type epinephrine 0.3 mg/0.3 mL 0.3 mg (0.3 mL) IM Q15M PRN 03/30/18 10/19/22 Rx injection, auto-injector (EpiPen) anaphylaxis #2 ea diphenhydramine HCl 25 mg capsule 25 mg PO DIRECTED PRN NEEDED 03/25/22 10/19/22 History (Benadryl) loratadine 10 mg tablet (Claritin) 10 mg PO DAILY 03/25/22 10/19/22 History albuterol sulfate 90 mcg/actuation inhalation 05/26/22 10/19/22 History aerosol inhaler prenat.vits,reinaldo,[id number] 1 tab PO DAILY 05/26/22 10/19/22 History vitamin B complex PO 05/26/22 10/19/22 History Allergies Allergy/AdvReac Type Severity Reaction Status Date / Time penicillin V Allergy Intermediate RASH Verified 10/19/22 10:03 Past Med/Surg History Medical History 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 Endometriosis Female fertility problem Fertility testing Hx of ectopic Hx of ectopic Hx of endometriosis Hx of varicella Post term over 40 weeks (01/09/14) with history of spontaneous Urinary tract infection Surgical History History of salpingectomy for Ectopic Hx of oral surgery Family History Father Cardiac disorder Diabetes Hypertension Heart disease Other Family history non-contributory Denies family history of Ovarian cancer Breast cancer Colorectal cancer Social History Smoking Status: Never smoker Do You Dip or Chew Tobacco: No; Hx Alcohol Use: No Hx Substance Use: No Preferred Language: Bahamian 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: No Beliefs That Will Affect Care: None marital status: marital status details: Gianni (38) [phone] Current Living Situation: Spouse and Family Current Living Situation Comment: 3 boys and spouse, 3 dogs, current occupational status: employed current occupation: @ [employer] Feels Safe at Home: Yes Assistive Devices: None Physical Exam Vital Signs Vital Signs - 24 hr 10/30/22 13:43 Temperature 36.3 C L Temperature Source Temporal Artery Scan Pulse Rate 120 H Respiratory Rate 20 Blood Pressure 119/71 Blood Pressure Mean 87 Pulse Oximetry 97 Oxygen Delivery Method Room Air Sepsis Recent Fever Within 48 Hours No Sepsis New/Unexplained Change in Mental Status N/A Sepsis Action Taken by Nursing No Action Required Constitutional: alert and oriented x3. no acute distress. Nontoxic HEENT: normocephalic, atraumatic. normal conjunctiva.PERRLA. EOM's grossly intact. Respiratory: lungs are clear to auscultation without wheezes, rhonchi, or rales bilaterally. equal chest rise. normal respiratory effort, no accessory muscle use. Cardiovascular: normal heart sounds without murmur. regular rate and rhythm. MSK: Tender to palpation diffusely over the left knee with associated soft tissue swelling. 2 puncture wounds to the lateral knee with surrounding erythema. No induration or fluctuance. No obvious abscess. Knee range of motion is intact. Peripheral vascular: Lower extremities warm and well perfused with palpable pedal pulses. Brisk capillary refill of all digits. Sensation grossly intact Psych:appropriate mood and affect. Course Administered Medications Discontinued Medications Acetaminophen (Acetaminophen 500 Mg Tab) 1,000 mg PO NOW STA Stop: 10/30/22 17:54 Last Admin: 10/30/22 17:58 Dose: 1,000 mg Documented By: RSConcepcion Cefepime HCl (Maxipime) 2,000 mg in 20 mls @ 5 mls/min IV NOW STA; Protocol Stop: 10/30/22 15:08 Last Admin: 10/30/22 15:11 Dose: 5 mls/min Documented By: RSConcepcion Clindamycin Phosphate (Cleocin/D5w) 600 mg in 50 mls @ 100 mls/hr IV NOW ONE Stop: 10/30/22 15:34 Last Infusion: 10/30/22 16:05 Dose: 0 mls/hr Documented By: RSConcepcion Admin: 10/30/22 15:33 Dose: 100 mls/hr Documented By: RSConcepcino Lidocaine HCl (Lidocaine 1% Local 20 Ml Vial) Confirm Administered Dose 1 ml .ROUTE .STK-MED ONE Stop: 10/30/22 15:51 Last Admin: 10/30/22 16:06 Dose: 1 ml Documented By: [id number] Lidocaine/Epinephrine (Lidocaine 1%/Epinephrine 1:100,000 50 Ml Vial) 10 ml INFIL NOW ONE Stop: 10/30/22 15:39 Last Admin: 10/30/22 16:06 Dose: Not Given Documented By: RSL Medical Decision Making Differential Diagnosis Joint effusion, cellulitis, abscess, septic arthritis, fracture, dislocation, soft tissue injury, ligamentous injury, foreign body as well as other pathologies Laboratory Data Attestation: I reviewed the patient's lab results. 10/30/22 14:42 10/30/22 14:42 Lab Results 10/30/22 10/30/22 10/30/22 Range/Units 14:42 14:42 14:42 WBC 10.43 (4.8-10.8) K/ul RBC 3.93 L (4.20-5.40) M/uL Hgb 12.1 (12.0-16.0) g/dl Hct 34.9 L (37.0-47.0) % MCV 88.8 (80.0-100.0) fL MCH 30.8 (25.0-34.0) pg MCHC 34.7 (32.0-36.0) g/dL RDW Std Deviation 45.3 (36.4-46.3) fL RDW Coeff of Ginger 14.1 (11.5-14.5) % Plt Count 302 (130-400) K/uL MPV 9.1 L (9.4-12.4) fL Immature Gran % (Auto) 0.7 % Neut % (Auto) 78.2 % Lymph % (Auto) 14.4 % Emery % (Auto) 4.6 % Eos % (Auto) 1.7 % Baso % (Auto) 0.4 % Neut # (Auto) 8.16 H (1.40-6.50) K/uL Lymph # (Auto) 1.50 (1.2-3.4) K/uL Emery # (Auto) 0.48 (0.11-0.59) K/uL Eos # (Auto) 0.18 (0-0.50) K/uL Baso # (Auto) 0.04 (0-0.2) K/uL Immature Gran # (Auto) 0.07 (0.01-0.20) K/uL ESR 27 H (0-20) mm/hr Sodium 135 L (136-145) mmol/L Potassium 3.4 L (3.5-5.1) mmol/L Chloride 105 (98-107) mmol/L Carbon Dioxide 23 (21-32) mmol/L Anion Gap 7 (3-11) BUN 8 (6-23) mg/dl Creatinine 0.72 (0.6-1.2) mg/dl Est Cr Clr Drug Dosing 108.8 ml/min Est GFR ( Amer) 122.3 ml/min Est GFR (Non-Af Amer) 105.5 ml/min BUN/Creatinine Ratio 11.1 (10-20) Glucose 127 H (70-99(Fasting)) mg/dl Calcium 8.8 (8.6-10.3) mg/dl C-Reactive Protein 9.97 H (0-0.5) mg/dl Fluid Comment Synovial Source Synovial Color Synovial Appearance Synovial WBC (Auto) (0-200) /ul Synovial RBC (Auto) /uL Synovial Polynuclear % % Synovial Mononuclear % % 10/30/22 Range/Units 16:00 WBC (4.8-10.8) K/ul RBC (4.20-5.40) M/uL Hgb (12.0-16.0) g/dl Hct (37.0-47.0) % MCV (80.0-100.0) fL MCH (25.0-34.0) pg MCHC (32.0-36.0) g/dL RDW Std Deviation (36.4-46.3) fL RDW Coeff of Ginger (11.5-14.5) % Plt Count (130-400) K/uL MPV (9.4-12.4) fL Immature Gran % (Auto) % Neut % (Auto) % Lymph % (Auto) % Emery % (Auto) % Eos % (Auto) % Baso % (Auto) % Neut # (Auto) (1.40-6.50) K/uL Lymph # (Auto) (1.2-3.4) K/uL Emery # (Auto) (0.11-0.59) K/uL Eos # (Auto) (0-0.50) K/uL Baso # (Auto) (0-0.2) K/uL Immature Gran # (Auto) (0.01-0.20) K/uL ESR (0-20) mm/hr Sodium (136-145) mmol/L Potassium (3.5-5.1) mmol/L Chloride (98-107) mmol/L Carbon Dioxide (21-32) mmol/L Anion Gap (3-11) BUN (6-23) mg/dl Creatinine (0.6-1.2) mg/dl Est Cr Clr Drug Dosing ml/min Est GFR ( Amer) ml/min Est GFR (Non-Af Amer) ml/min BUN/Creatinine Ratio (10-20) Glucose (70-99(Fasting)) mg/dl Calcium (8.6-10.3) mg/dl C-Reactive Protein (0-0.5) mg/dl Fluid Comment Synovial Source Knee Synovial Color Yellow Synovial Appearance Cloudy Synovial WBC (Auto) H (0-200) /ul Synovial RBC (Auto) 3000 /uL Synovial Polynuclear % 74.7 % Synovial Mononuclear % 25.3 % MDM Narrative 37-year-old female who presents to the emergency department for evaluation of left knee pain and swelling/redness s/p puncture wound from [facility] on 10/28/22. Review of pertinent visits and past medical history performed. Patient was re ferred from [facility] [address] urgent care orthopedics for concern of septic arthritis. Xray from initial visit on 10/28/22 reviewed and without bony abnormalities or joint effusion. Vital signs demonstrate tachycardia otherwise within normal limits, afebrile. IV access was established and labs are obtained. CBC without leukocytosis or acute anemia. CMP without significant electrolyte abnormalities. Renal function within normal limits. CRP elevated at 9.97. ESR elevated at 27. On exam, patient is nontoxic-appearing in no acute distress. She is tender to palpation over the anterior lateral aspect of the knee overlying 2 healing puncture wounds. There is surrounding erythema and warmth of the wounds. This does not involve the entire joint. Mild joint effusion on exam. Pain elicited with active and passive knee range of motion. The left lower extremity is neurovascularly intact. Patient declined need for pain medication while in the ED. Case was discussed with on-call Orthopedics, Dr. Brice who advised joint aspiration and antibiotics for concerns of septic arthritis. Case was discussed with ED attending Dr. Jensen. Patient was updated on all exam findings and test results as well as orthopedics recommendations. Patient agreeable to joint aspiration procedure for diagnostic testing and culture of fluid. Consent was obtained. Procedure was performed by Dr. Jensen at bedside. No complications met. Please see his note for details. Given penicillin allergy and , discussed with ED pharmacy for antibiotic recommendations. She was started on IV cefepime and clindamycin pending culture results. If evidence of infection, patient will likely require admission to hospital for IV antibiotics for treatment of septic joint. Patient was signed out to ERIK Mera at shift change pending fluid results and disposition. Please see her note for updates and final disposition. Impression & Plan Cellulitis of knee, left, Effusion of left knee Discharge Plan Visit Data Chief Complaint: Knee Injury/Pain Stated Complaint: LT KNEE INJURY ED Provider: Marko Jensen ED Midlevel Provider: Bernadette Mera Discharge Problem: Cellulitis of knee, left, Effusion of left knee Forms Stand Alone Forms: [employer] Prescriptions Prescriptions: No Action prenat.vits,reinaldo,[id number]-[id number] Tablet 1 tab PO DAILY vitamin B complex PO albuterol sulfate 90 mcg/actuation HFA aerosol inhaler inhalation epinephrine [EpiPen] 0.3 mg/0.3 mL auto-injector 0.3 mg IM Q15M PRN (Reason: anaphylaxis) Qty: 2 0RF Rx Instructions: until response diphenhydramine HCl [Benadryl] 25 mg Capsule 25 mg PO DIRECTED PRN (Reason: NEEDED) loratadine [Claritin] 10 mg Tablet 10 mg PO DAILY Referrals Referrals: Meggan Araujo DO [Primary Care Provider] -
[2022-10-30 15:04] LABS: Basophils # (auto) 0.04 K/uL (0-0.2); Basophils % (auto) 0.4 %; Eosinophils # (auto) 0.18 K/uL (0-0.50); Eosinophils % (auto) 1.7 %; Hematocrit (blood only) 34.9 % (37.0-47.0); Hemoglobin 12.1 g/dl (12.0-16.0); Immature Granulocytes # (auto) 0.07 K/uL (0.01-0.20); Immature Granulocytes % (auto) 0.7 %; Lymphocytes % (auto) 14.4 %; Mean Corpuscular Hemoglobin 30.8 pg (25.0-34.0); Mean Corpuscular Hgb Conc 34.7 g/dL (32.0-36.0); Mean Corpuscular Volume 88.8 fL (80.0-100.0); Mean Platelet Volume 9.1 fL (9.4-12.4); Monocytes # (auto) 0.48 K/uL (0.11-0.59); Monocytes % (auto) 4.6 %; Neutrophils # (auto) 8.16 K/uL (1.40-6.50); Neutrophils % (auto) 78.2 %; Platelet Count 302 K/uL (130-400); RDW Coefficient of Variation 14.1 % (11.5-14.5); RDW Standard Deviation 45.3 fL (36.4-46.3); Red Blood Count 3.93 M/uL (4.20-5.40); White Blood Count 10.43 K/ul (4.8-10.8)
[2022-10-30] MEDS ORDERED: CEFEPIME 2,000 MG/20 ML VIAL IV STA (15:05)
[2022-10-30] MEDS ORDERED: CLINDAMYCIN/D5W 600 MG/50 ML BAG IV ONE (15:05)
[2022-10-30 15:19] LABS: BUN Creatinine Ratio 11.1 (10-20); C Reactive Protein 9.97 mg/dl (0-0.5); Calcium 8.8 mg/dl (8.6-10.3); Creatinine Clr Calc Pharmacy 108.8 ml/min; Est GFR (African American) 122.3 ml/min; Est GFR (Non-African American) 105.5 ml/min; Potassium 3.4 mmol/L (3.5-5.1)
[2022-10-30] MEDS ORDERED: LIDOCAINE 1%/EPINEPHRINE 1:100,000 50 ML VIAL INFIL ONE (15:38)
[2022-10-30] MEDS ORDERED: LIDOCAINE 1% LOCAL 20 ML VIAL ONE (15:50)
--- NOTE | 2022-10-30 16:03 | Emergency Department Note ---
ED Visit Note Discussed the case with the physician social worker assistant regarding trimester and wound to her left knee with some concern for septic joint. Blood work obtained. Normal white blood cell count elevated CRP. Discussed the patient proceeding given her pain with movement and the mechanism of the rooster spur possibly could been fairly deep and violated the joint space completing arthrocentesis. Completed as below. This is sent for culture as well as cell count and crystal analysis. ED procedure: Left knee arthrocentesis -- superior lateral approach Performed by myself with verbal consent from the patient regarding risk and benefits including infection pain and possible bleeding risk Left knee swelling and lateral knee cellulitis from a rooster attack There is some swelling lateral inferior to the left knee. Generalized joint effusion noted. Some pain with range of motion. 2 small punctate wounds there. No fluctuance and doubt abscess. Discussed the patient given these findings are pain possibly performing arthrocentesis to exclude deeper joint infection/septic arthritis. Discussed with her the risk and benefits which she acknowledged. Will cover with antibiotics empirically. Will avoid any erythematous areas in use a lateral superior approach for drainage. Area was anesthetized with approximately 6 cc of 1% lidocaine buffered injected subcutaneously. Standard technique was used and the area was prepped with chlorhexidine and Betadine. Sterile gloves in the standard technique with an 18- gauge needle was advanced in the superior lateral aspect away from any area of erythema into the joint. 15 mL of cloudy yellow fluid was aspirated without complication. This was sent to the lab for testing. The area was cleaned with saline and bandaged. Hemostatic. Patient cell counts show more than 20,000 white blood cells 75% almost polynuclear. Crystal evaluation is pending but do not believe this represents crystalline disease/gout/pseudogout given the clinical history. Doubt this is reactive arthritis. With the concern for possible infection and moderate elevation white blood cells, will bring in for continued IV antibiotics and orthopedic evaluation. Synovial culture is pending for definition. .
[2022-10-30 17:19] LABS: Appearance Synovial Fluid Cloudy; Color Synovial Fluid Yellow; Mononuclear WBC Synovial 25.3 %; Polynuclear WBC Synovial 74.7 %; RBC Synovial Fluid Auto 3000 /uL; Source Synovial Fluid Knee; WBC Synovial Fluid Auto 20112 /ul (0-200)
[2022-10-30] MEDS ORDERED: ACETAMINOPHEN 500 MG TAB PO STA (17:53)
--- NOTE | 2022-10-30 20:52 | Emergency Department Note ---
ED Visit Note I received this patient in signout from Reina Salvador PA-C at change of shift. At that time, patient had had a knee aspiration performed and results of this were pending. Cell count returned and showed a white blood cell count of 20,000. Given her recent injury to the knee and this finding, I am suspicious of a septic joint. I did speak with Dr. Brice of orthopedics who agreed with admission for IV antibiotics. Patient was agreeable with the plan of care. She has already received cefepime and clindamycin. [facility] to [facility] the patient for further care. .
[2022-10-30] MEDS ORDERED: ACETAMINOPHEN 325 MG TAB PO PRN (21:00)
[2022-10-30] MEDS ORDERED: ONDANSETRON INJ 2 MG/ML 2 ML VIAL IV PRN (21:00)
[2022-10-30] MEDS: SODIUM CHLORIDE 0.9% 1000ML 1,000 ML IV SCH (21:41)
--- NOTE | 2022-10-30 22:13 | History & Physical Report ---
Date of Service October 30, 2022 Assessment & Plan (1) Acute pain of left knee: Plan: 57-year-old female presents with left knee infection. On October 28 the rooster struck with her spur and scratched her left knee. Left knee infection Possible septic arthritis S/p aspiration in the ER and WBC is 20 K Empirically started on cefepime and clindamycin We will follow the cultures We will keep n.p.o. after midnight Ortho consult in a.m. 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 On October 28 her rooster struck her with a spur and scratched her left knee on the lateral aspect of the knee and on the popliteal region and she was in the ER. At that time x-ray was okay and there was low suspicion of infection and being no antibiotic was prescribed and she was advised to follow closely with the PCP. Comes back today because of some erythema to the left knee and painful movements. The knee was aspirated in the ER today and synovial WBC was 20,000. Ortho was notified by ER. ER after speaking with pharmacy decided to give IV cefepime and IV clindamycin. Patient is able to ambulate okay. Denies any fevers. Denies any other complaints. Resting comfortably and hemodynamically stable. Denies any headache or dizziness. No earache or runny nose or sore throat or cough. No nausea. No chest pain or shortness of breath. No abdominal pain. Normal bowel and bladder movements. Allergies Allergy/AdvReac Type Severity Reaction Status Date / Time penicillin V Allergy Intermediate RASH Verified 10/19/22 10:03 Home Medications Medication Instructions Recorded Confirmed Type epinephrine 0.3 mg/0.3 mL 0.3 mg (0.3 mL) IM Q15M PRN 03/30/18 10/19/22 Rx injection, auto-injector (EpiPen) anaphylaxis #2 ea diphenhydramine HCl 25 mg capsule 25 mg PO DIRECTED PRN NEEDED 03/25/22 10/19/22 History (Benadryl) loratadine 10 mg tablet (Claritin) 10 mg PO DAILY 03/25/22 10/19/22 History albuterol sulfate 90 mcg/actuation inhalation 05/26/22 10/19/22 History aerosol inhaler prenat.vits,reinaldo,yeu-bmam-waxgj 1 tab PO DAILY 05/26/22 10/19/22 History vitamin B complex PO 05/26/22 10/19/22 History Past Med/Surg History Medical History 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 Endometriosis Female fertility problem Fertility testing Hx of ectopic Hx of ectopic Hx of endometriosis Hx of varicella Post term over 40 weeks (01/09/14) with history of spontaneous Urinary tract infection Surgical History History of salpingectomy for Ectopic Hx of oral surgery Family History Father Cardiac disorder Diabetes Hypertension Heart disease Other Family history non-contributory Denies family history of Ovarian cancer Breast cancer Colorectal cancer Social History Smoking Status: Never smoker Do You Dip or Chew Tobacco: No; Hx Alcohol Use: No Hx Substance Use: No Preferred Language: Chinese Communication Ability: Effective Driller And Reamer Required: No Beliefs That Will Affect Care: None marital status: marital status details: Gianni (38) [phone] Current Living Situation: Spouse and Family Current Living Situation Comment: 3 boys and spouse, 3 dogs, current occupational status: employed current occupation: [employer] @ [employer] Other Information That Helps Us Care for You: No Feels Safe at Home: Yes Safety Concerns: Feels Safe At This Time Assistive Devices: None Review of Systems Review of Systems: All systems reviewed & are unremarkable except as noted in Subjective Physical Exam Physical Exam: General- Not in distress Head- atraumatic Eyes- PERRL ENT- oropharynx clear Neck- supple, no JVD. Lungs- clear to auscultation and percussion Heart- regular rhythm; no murmur, no gallop, no rub appreciated Abdomen- normal bowel sounds, soft, 34 week Extremities- Left knee is swollen and slightly erytematous. healing small puncture wounds seen on lateral aspect and in popliteal region Neuro- alert, oriented x 3 Non focal. Skin- warm & dry Results & Data Results & Data Vital Signs (Past 12 Hours) Vital Signs Temp Pulse Pulse Pulse Resp BP BP 10/30/22 21:21 36.6 C 82 16 109/73 10/30/22 21:21 10/30/22 20:48 10/30/22 20:00 36.8 C 96 H 18 10/30/22 13:43 36.3 C L 120 H 20 119/71 BP Pulse Ox Pulse Ox O2 Del Method O2 Del Method 10/30/22 21:21 99 Room Air 10/30/22 21:21 99 Room Air 10/30/22 20:48 Room Air 10/30/22 20:00 131/89 100 Room Air 10/30/22 13:43 97 Room Air Diagnostic Findings Laboratory Results WBC 10.43 K/ul (4.8-10.8) 10/30/22 14:42 RBC 3.93 M/uL (4.20-5.40) L 10/30/22 14:42 Hgb 12.1 g/dl (12.0-16.0) 10/30/22 14:42 Hct 34.9 % (37.0-47.0) L 10/30/22 14:42 MCV 88.8 fL (80.0-100.0) 10/30/22 14:42 MCH 30.8 pg (25.0-34.0) 10/30/22 14:42 MCHC 34.7 g/dL (32.0-36.0) 10/30/22 14:42 RDW Std Deviation 45.3 fL (36.4-46.3) 10/30/22 14:42 RDW Coeff of Ginger 14.1 % (11.5-14.5) 10/30/22 14:42 Plt Count 302 K/uL (130-400) 10/30/22 14:42 MPV 9.1 fL (9.4-12.4) L 10/30/22 14:42 Immature Gran % (Auto) 0.7 % 10/30/22 14:42 Neut % (Auto) 78.2 % 10/30/22 14:42 Lymph % (Auto) 14.4 % 10/30/22 14:42 [place] % (Auto) 4.6 % 10/30/22 14:42 Eos % (Auto) 1.7 % 10/30/22 14:42 Baso % (Auto) 0.4 % 10/30/22 14:42 Neut # (Auto) 8.16 K/uL (1.40-6.50) H 10/30/22 14:42 Lymph # (Auto) 1.50 K/uL (1.2-3.4) 10/30/22 14:42 [place] # (Auto) 0.48 K/uL (0.11-0.59) 10/30/22 14:42 Eos # (Auto) 0.18 K/uL (0-0.50) 10/30/22 14:42 Baso # (Auto) 0.04 K/uL (0-0.2) 10/30/22 14:42 Immature Gran # (Auto) 0.07 K/uL (0.01-0.20) 10/30/22 14:42 ESR 27 mm/hr (0-20) H 10/30/22 14:42 Sodium 135 mmol/L (136-145) L 10/30/22 14:42 Potassium 3.4 mmol/L (3.5-5.1) L 10/30/22 14:42 Chloride 105 mmol/L (98-107) 10/30/22 14:42 Carbon Dioxide 23 mmol/L (21-32) 10/30/22 14:42 Anion Gap 7 (3-11) 10/30/22 14:42 BUN 8 mg/dl (6-23) 10/30/22 14:42 Creatinine 0.72 mg/dl (0.6-1.2) 10/30/22 14:42 Est Cr Clr Drug Dosing 108.8 ml/min 10/30/22 14:42 Est GFR ( Amer) 122.3 ml/min 10/30/22 14:42 Est GFR (Non-Af Amer) 105.5 ml/min 10/30/22 14:42 BUN/Creatinine Ratio 11.1 (10-20) 10/30/22 14:42 Glucose 127 mg/dl (70-99(Fasting)) H 10/30/22 14:42 Calcium 8.8 mg/dl (8.6-10.3) 10/30/22 14:42 C-Reactive Protein 9.97 mg/dl (0-0.5) H 10/30/22 14:42 Fluid Comment 10/30/22 16:00 Synovial Source Knee 10/30/22 16:00 Synovial Color Yellow 10/30/22 16:00 Synovial Appearance Cloudy 10/30/22 16:00 Synovial WBC (Auto) 79828 /ul (0-200) H 10/30/22 16:00 Synovial RBC (Auto) 3000 /uL 10/30/22 16:00 Synovial Polynuclear % 74.7 % 10/30/22 16:00 Synovial Mononuclear % 25.3 % 10/30/22 16:00 SARS-CoV-2, RNA, NAAT NEGATIVE (NEGATIVE) 10/30/22 15:11 Code Status & VTE Plan VTE Prophylaxis Plan VTE Prophylaxis will be ordered: Yes
[2022-10-30] MEDS: CLINDAMYCIN/D5W 600 MG/50 ML BAG IV SCH (23:10)
--- NOTE | 2022-10-31 00:01 | OB/GYN Consultation ---
Date of Consultation October 31, 2022 Assessment & Plan (1) Encounter for supervision of normal in multigravida, antepartum: (2) Animal scratch: (3) Cellulitis of knee, left: Plan Both cephalosporins and clindamycin antibiotics ok in . No obstetric complaints at this time. Discussed with patient that she does not appear to have systemic infection at this time, however infection (generally) in can increase risk of labor - reviewed s/s labor, and if she develops contractions, she is to notify OB team. I have placed orders for a daily nonstress test - L&D nursing staff will perform these. When she is felt stable for discharge by primary team, she is aware to continue routine care followup in our office. If there are any obstetric concerns/questions during this hospitalization - please do not hesitate to contact on-call FLAT CUTTER. History of Present Illness Reason for Consultation: , 34w Requesting Physician: Dr Liriano Attending Physician: Ra Pérez MD History of Present Illness 37yo with estimated delivery date 12/09/22 - 34 weeks. Presented to ER after rooster attack on 10/28 to left knee. Rooster used spurs to attack. The knee was drained today in the ER, elevated WBC in the synovial fluid, and she has been admitted for IV antibiotics. No fever, WBC on CBC was normal. No obstetric complaints. Noting good movement. No vaginal bleeding. No leaking fluid. No contractions. Eating/drinking well. No problems with headache, vision changes, N/V, RUQ pain, LE edema. She is otherwise safe at home. The rooster ("Hunter Solorio") has been put down - he had not caused any trouble prior to this episode in the 4 years she had had him. Allergies Allergy/AdvReac Type Severity Reaction Status Date / Time penicillin V Allergy Intermediate RASH Verified 10/19/22 10:03 Home Medications Medication Instructions Recorded Confirmed Type epinephrine 0.3 mg/0.3 mL 0.3 mg (0.3 mL) IM Q15M PRN 03/30/18 10/19/22 Rx injection, auto-injector (EpiPen) anaphylaxis #2 ea diphenhydramine HCl 25 mg capsule 25 mg PO DIRECTED PRN NEEDED 03/25/22 10/19/22 History (Benadryl) loratadine 10 mg tablet (Claritin) 10 mg PO DAILY 03/25/22 10/19/22 History albuterol sulfate 90 mcg/actuation inhalation 05/26/22 10/19/22 History aerosol inhaler prenat.vits,reinaldo,alw-mrep-[id number] 1 tab PO DAILY 05/26/22 10/19/22 History vitamin B complex PO 05/26/22 10/19/22 History Patient History Medical History 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 Endometriosis Female fertility problem Fertility testing Hx of ectopic Hx of ectopic Hx of endometriosis Hx of varicella Post term over 40 weeks (01/09/14) with history of spontaneous Urinary tract infection Surgical History History of salpingectomy for Ectopic Hx of oral surgery Family History Father Cardiac disorder Diabetes Hypertension Heart disease Other Family history non-contributory Denies family history of Ovarian cancer Breast cancer Colorectal cancer Social History Smoking Status: Never smoker Do You Dip or Chew Tobacco: No; Hx Alcohol Use: No Hx Substance Use: No Preferred Language: Bengali Communication Ability: Effective Media Center Director School Required: No Beliefs That Will Affect Care: None marital status: marital status details: Gianni (38) [phone] Current Living Situation: Spouse and Family Current Living Situation Comment: 3 boys and spouse, 3 dogs, current occupational status: employed current occupation: [employer] @ [employer] Other Information That Helps Us Care for You: No Feels Safe at Home: Yes Safety Concerns: Feels Safe At This Time Assistive Devices: None Physical Exam Physical Exam: Awake, talking, no acute distress Abdomen soft, NTTP, gravid. Left knee with mansfield from rooster spur, bandage over drainage site. Small amount of swelling, redness. Results & Data Vital Signs (Past 12 Hours) Vital Signs Temp Pulse Pulse Pulse Resp BP BP 10/30/22 22:02 87 10/30/22 21:17 97 H 10/30/22 21:21 36.6 C 82 16 109/73 10/30/22 21:21 10/30/22 20:48 10/30/22 20:00 36.8 C 96 H 18 10/30/22 13:43 36.3 C L 120 H 20 119/71 BP Pulse Ox Pulse Ox O2 Del Method O2 Del Method 10/30/22 22:02 10/30/22 21:17 10/30/22 21:21 99 Room Air 10/30/22 21:21 99 Room Air 10/30/22 20:48 Room Air 10/30/22 20:00 131/89 100 Room Air 10/30/22 13:43 97 Room Air PG Care Time/CCT Total # of Minutes Spent Total Time Spent with Patient: Total time spent is greater than 50% in coordination of care (as documented) at patient's floor/unit and/or counseling patient: Coding Level of Care Code 15296 INT INP/OBS CARE 1/40MIN Diagnoses Encounter for supervision of normal in multigravida, antepartum Z34.80 Animal scratch T14.8XXA Cellulitis of knee, left L03.116
[2022-10-31] MEDS: CEFEPIME 2,000 MG in SYRINGE 0 ML IV SCH ×2 (03:37→15:41)
[2022-10-31 06:11] LABS: Basophils # (auto) 0.05 K/uL (0-0.2); Basophils % (auto) 0.6 %; Eosinophils # (auto) 0.28 K/uL (0-0.50); Eosinophils % (auto) 3.2 %; Hematocrit (blood only) 32.7 % (37.0-47.0); Hemoglobin 11.2 g/dl (12.0-16.0); Immature Granulocytes # (auto) 0.07 K/uL (0.01-0.20); Immature Granulocytes % (auto) 0.8 %; Lymphocytes % (auto) 21.7 %; Mean Corpuscular Hemoglobin 30.3 pg (25.0-34.0); Mean Corpuscular Hgb Conc 34.3 g/dL (32.0-36.0); Mean Corpuscular Volume 88.4 fL (80.0-100.0); Mean Platelet Volume 9.1 fL (9.4-12.4); Monocytes # (auto) 0.73 K/uL (0.11-0.59); Monocytes % (auto) 8.4 %; Neutrophils # (auto) 5.71 K/uL (1.40-6.50); Neutrophils % (auto) 65.3 %; Platelet Count 250 K/uL (130-400); RDW Coefficient of Variation 14.2 % (11.5-14.5); RDW Standard Deviation 45.6 fL (36.4-46.3); White Blood Count 8.74 K/ul (4.8-10.8)
[2022-10-31 06:15] LABS: BUN Creatinine Ratio 16.7 (10-20); Calcium 7.9 mg/dl (8.6-10.3); Creatinine Clr Calc Pharmacy 126.2 ml/min; Est GFR (African American) 133.1 ml/min; Est GFR (Non-African American) 114.8 ml/min; Magnesium 1.7 mg/dl (1.7-2.4); Potassium 3.6 mmol/L (3.5-5.1)
[2022-10-31] MEDS: CLINDAMYCIN/D5W 600 MG/50 ML BAG IV SCH ×3 (06:35→22:55)
--- NOTE | 2022-10-31 08:14 | Orthopedic Consultation ---
Date of Service October 31, 2022 Assessment & Plan (1) Animal scratch: 37-year-old female now just a little over 2 days out from a puncture wound of the left leg with some surrounding cellulitis. The concern was septic arthritis. Clinically she does not have septic arthritis. She did have a small knee joint effusion with some slight inflammation in it. Culture results are pending. Once again clinically this does not look like septic arthritis. Her cellulitis is even fairly mild. It does seem like she has been improved on antibiotics and this may have been detected early enough and antibiotics given in order to prevent such disease process. Recommendations: At this point clinically she is made significant improvements even just over the past 12 hours. Considering everything I would recommend she continue on IV antibiotics todayif she is doing better tomorrow we can likely discharge her on oral antibiotics for about 10 days. I do not foresee her needing any surgical intervention. She can weight-bear and participate in activities as tolerated for now. Continue the IV antibiotics. I will check her tomorrow. Any orthopedic questions can be direct me at [phone] (2) Acute pain of left knee: (3) Cellulitis of knee, left: History of Present Illness Reason for Consultation: . Left knee pain discomfort and swelling after being poked by a chicken/rooster. Concern for septic arthritis Requesting Physician: . Attending Physician: Ra Pérez MD . 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 On Wednesday she got poked somehow by one of the animals. She had the cute onset of pain was seen in the emergency room. She had a work-up at that time which was essentially negative. She had developed some increased pain and difficulty ambulating and reported back to the ER yesterday. They did a lab work-up and aspirate her knee. She has been admitted with IV antibiotics, cellulitis, and concern for septic arthritis. They did put her on antibiotics. She is actually feeling quite a bit better this morning. Allergies Allergy/AdvReac Type Severity Reaction Status Date / Time penicillin V Allergy Intermediate RASH Verified 10/19/22 10:03 Home Medications Medication Instructions Recorded Confirmed Type epinephrine 0.3 mg/0.3 mL 0.3 mg (0.3 mL) IM Q15M PRN 03/30/18 10/19/22 Rx injection, auto-injector (EpiPen) anaphylaxis #2 ea diphenhydramine HCl 25 mg capsule 25 mg PO DIRECTED PRN NEEDED 03/25/22 10/19/22 History (Benadryl) loratadine 10 mg tablet (Claritin) 10 mg PO DAILY 03/25/22 10/19/22 History albuterol sulfate 90 mcg/actuation inhalation 05/26/22 10/19/22 History aerosol inhaler prenat.vits,reinaldo,lqs-ckvt-kfigi 1 tab PO DAILY 05/26/22 10/19/22 History vitamin B complex PO 05/26/22 10/19/22 History Past Med/Surg History Medical History 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 Endometriosis Female fertility problem Fertility testing Hx of ectopic Hx of ectopic Hx of endometriosis Hx of varicella Post term over 40 weeks (01/09/14) with history of spontaneous Urinary tract infection Surgical History History of salpingectomy for Ectopic Hx of oral surgery Family History Father Cardiac disorder Diabetes Hypertension Heart disease Other Family history non-contributory Denies family history of Ovarian cancer Breast cancer Colorectal cancer Social History Smoking Status: Never smoker Do You Dip or Chew Tobacco: No; Hx Alcohol Use: No Hx Substance Use: No Preferred Language: Tajik Communication Ability: Effective Waste Handling Technician Required: No Beliefs That Will Affect Care: None marital status: marital status details: Gianni (38) [phone] Current Living Situation: Spouse and Family Current Living Situation Comment: 3 boys and spouse, 3 dogs, current occupational status: employed current occupation: [employer] @ [employer] Other Information That Helps Us Care for You: No Feels Safe at Home: Yes Safety Concerns: Feels Safe At This Time Assistive Devices: None Review of Systems All systems reviewed & are unremarkable except as noted in HPI & below. Physical Exam . Examination of the left knee reveals a small puncture wound over the anterior lateral side of her knee. It is scabbed over. There is minimal cellulitis and some very mild soft tissue swelling. I do not detect any significant knee effusion today. She can range her knee from 0 to 90 degrees with some moderate discomfort. Really not much in the way of redness. She got a good straight leg raise. She is neurologically intact. Results & Data Results & Data Laboratory Results . White blood cell count is normal. Sed rate slightly elevated at 27. Knee aspirate reveals 20,000 white cells with 75% polys. Gram stain shows no organisms. Culture results pending Diagnostic Findings . PG Care Time/CCT Total # of Minutes Spent Total Time Spent with Patient: Total time spent is greater than 50% in coordination of care (as documented) at patient's floor/unit and/or counseling patient: Coding Level of Care Code 20801 IN/OBS CONSULT LVL 4,60M Diagnoses Animal scratch T14.8XXA Acute pain of left knee M25.562 Cellulitis of knee, left L03.116
[2022-10-31] MEDS: SODIUM CHLORIDE 0.9% 1000ML 1,000 ML IV SCH (09:29)
[2022-10-31] MEDS: PRENATAL VITAMIN 1 TAB PO SCH (09:45)
[2022-10-31] MEDS: LORATADINE 10 MG TAB PO SCH (09:45)
--- NOTE | 2022-10-31 12:10 | Hospitalist Progress Note ---
Date of Service October 31, 2022 Assessment & Plan (1) Acute pain of left knee: (2) Animal scratch: (3) Cellulitis of knee, left: Plan 57-year-old female presents with left knee infection. On October 28 the rooster struck with her spur and scratched her left knee. Left knee infection Possible septic arthritis S/p joint aspiration in the ER Labs reviewed; no leukocytosis Joint aspiration analysis; WBC count of 20,000 (PMNC -74%) ESR elevated 27 CRP9.97 Gram stain negative. Culture pending Dr. Brice from orthopedic evaluated the patient; less likely to have septic arthritis. Likely left knee cellulitis Continue on cefepime and clindamycin Follow-up on cultures 34-week ELEVATED MOTORMAN evaluated the patient; daily non-stress test. DVT prophylaxis ambulation Disposition; continues to be hospitalized for IV antibiotics. Full code Please note the above document was generated using voice recognition software. It may contain grammatical, syntax or spelling errors. Any formal questions or concerns about the content, text or information contained within the body of this dictation should be directly addressed to the provider for clarification Admission and Anticipated Discharge Date Admission Date: October 30, 2022 Subjective Patient seen and examined at bedside. She reports that swelling and redness has improved compared to admission. Range of motion of the knee is still painful. Review of Systems Review of Systems: All systems reviewed & are unremarkable except as noted in Subjective Physical Exam Physical Exam: General- Not in distress Lungs- clear to auscultation and percussion Heart- regular rhythm; no murmur, no gallop, no rub appreciated Abdomen- normal bowel sounds, soft, 34 week Extremities-slight swelling on left knee. No erythema noted. Healing small puncture wounds seen on lateral aspect and in popliteal region Neuro- alert, oriented x 3 Non focal. Skin- warm & dry Results & Data Results & Data Vital Signs (Past 12 Hours) Vital Signs Temp Pulse Pulse Resp BP Pulse Ox O2 Del Method 10/31/22 11:21 36.5 C 85 18 108/71 98 Room Air 10/31/22 07:26 36.7 C 89 18 108/53 L 98 Room Air 10/31/22 06:00 79 10/31/22 03:08 36.8 C 96 H 16 107/68 97 Room Air Laboratory Results Laboratory Results WBC 8.74 K/ul (4.8-10.8) 10/31/22 05:20 RBC 3.70 M/uL (4.20-5.40) L 10/31/22 05:20 Hgb 11.2 g/dl (12.0-16.0) L 10/31/22 05:20 Hct 32.7 % (37.0-47.0) L 10/31/22 05:20 MCV 88.4 fL (80.0-100.0) 10/31/22 05:20 MCH 30.3 pg (25.0-34.0) 10/31/22 05:20 MCHC 34.3 g/dL (32.0-36.0) 10/31/22 05:20 RDW Std Deviation 45.6 fL (36.4-46.3) 10/31/22 05:20 RDW Coeff of Ginger 14.2 % (11.5-14.5) 10/31/22 05:20 Plt Count 250 K/uL (130-400) 10/31/22 05:20 MPV 9.1 fL (9.4-12.4) L 10/31/22 05:20 Immature Gran % (Auto) 0.8 % 10/31/22 05:20 Neut % (Auto) 65.3 % 10/31/22 05:20 Lymph % (Auto) 21.7 % 10/31/22 05:20 [place] % (Auto) 8.4 % 10/31/22 05:20 Eos % (Auto) 3.2 % 10/31/22 05:20 Baso % (Auto) 0.6 % 10/31/22 05:20 Neut # (Auto) 5.71 K/uL (1.40-6.50) 10/31/22 05:20 Lymph # (Auto) 1.90 K/uL (1.2-3.4) 10/31/22 05:20 [place] # (Auto) 0.73 K/uL (0.11-0.59) H 10/31/22 05:20 Eos # (Auto) 0.28 K/uL (0-0.50) 10/31/22 05:20 Baso # (Auto) 0.05 K/uL (0-0.2) 10/31/22 05:20 Immature Gran # (Auto) 0.07 K/uL (0.01-0.20) 10/31/22 05:20 ESR 27 mm/hr (0-20) H 10/30/22 14:42 Sodium 136 mmol/L (136-145) 10/31/22 05:20 Potassium 3.6 mmol/L (3.5-5.1) 10/31/22 05:20 Chloride 110 mmol/L (98-107) H 10/31/22 05:20 Carbon Dioxide 19 mmol/L (21-32) L 10/31/22 05:20 Anion Gap 7 (3-11) 10/31/22 05:20 BUN 10 mg/dl (6-23) 10/31/22 05:20 Creatinine 0.60 mg/dl (0.6-1.2) 10/31/22 05:20 Est Cr Clr Drug Dosing 126.2 ml/min 10/31/22 05:20 Est GFR ( Amer) 133.1 ml/min 10/31/22 05:20 Est GFR (Non-Af Amer) 114.8 ml/min 10/31/22 05:20 BUN/Creatinine Ratio 16.7 (10-20) 10/31/22 05:20 Glucose 86 mg/dl (70-99(Fasting)) 10/31/22 05:20 Calcium 7.9 mg/dl (8.6-10.3) L 10/31/22 05:20 Magnesium 1.7 mg/dl (1.7-2.4) 10/31/22 05:20 C-Reactive Protein 9.97 mg/dl (0-0.5) H 10/30/22 14:42 Fluid Comment 10/30/22 16:00 Synovial Source Knee 10/30/22 16:00 Synovial Color Yellow 10/30/22 16:00 Synovial Appearance Cloudy 10/30/22 16:00 Synovial WBC (Auto) 75363 /ul (0-200) H 10/30/22 16:00 Synovial RBC (Auto) 3000 /uL 10/30/22 16:00 Synovial Polynuclear % 74.7 % 10/30/22 16:00 Synovial Mononuclear % 25.3 % 10/30/22 16:00 SARS-CoV-2, RNA, NAAT NEGATIVE (NEGATIVE) 10/30/22 15:11
[2022-11-01] MEDS: CEFEPIME 2,000 MG in SYRINGE 0 ML IV SCH ×2 (03:49→16:15)
[2022-11-01] MEDS: CLINDAMYCIN/D5W 600 MG/50 ML BAG IV SCH ×2 (06:15→15:30)
[2022-11-01 06:20] LABS: Basophils # (auto) 0.04 K/uL (0-0.2); Basophils % (auto) 0.4 %; Eosinophils # (auto) 0.26 K/uL (0-0.50); Eosinophils % (auto) 2.6 %; Hematocrit (blood only) 36.1 % (37.0-47.0); Hemoglobin 12.1 g/dl (12.0-16.0); Immature Granulocytes # (auto) 0.08 K/uL (0.01-0.20); Immature Granulocytes % (auto) 0.8 %; Lymphocytes # (auto) 1.95 K/uL (1.2-3.4); Lymphocytes % (auto) 19.6 %; Mean Corpuscular Hemoglobin 30.6 pg (25.0-34.0); Mean Corpuscular Hgb Conc 33.5 g/dL (32.0-36.0); Mean Corpuscular Volume 91.4 fL (80.0-100.0); Mean Platelet Volume 9.1 fL (9.4-12.4); Monocytes # (auto) 0.69 K/uL (0.11-0.59); Monocytes % (auto) 6.9 %; Neutrophils # (auto) 6.91 K/uL (1.40-6.50); Neutrophils % (auto) 69.7 %; Platelet Count 292 K/uL (130-400); RDW Coefficient of Variation 14.1 % (11.5-14.5); RDW Standard Deviation 47.2 fL (36.4-46.3); Red Blood Count 3.95 M/uL (4.20-5.40); White Blood Count 9.93 K/ul (4.8-10.8)
[2022-11-01 06:35] LABS: BUN Creatinine Ratio 11.4 (10-20); Calcium 8.5 mg/dl (8.6-10.3); Creatinine Clr Calc Pharmacy 109.6 ml/min; Est GFR (African American) 126.5 ml/min; Est GFR (Non-African American) 109.1 ml/min; Potassium 3.7 mmol/L (3.5-5.1)
--- NOTE | 2022-11-01 08:22 | Orthopedic Progress Note ---
Date of Service November 01, 2022 Assessment & Plan (1) Animal scratch: (2) Acute pain of left knee: (3) Cellulitis of knee, left: Patient is doing much better today. There is no clinical signs of septic arthritis. At this point I would recommend she be discharged on oral broad- spectrum antibiotics. Recommendation would be Augmentin may be 875 twice a day for 10 days. She can follow-up either in our clinic or primary care doctor as needed. No other particular restrictions. Any orthopedic questions can direct me to me [phone] Subjective . 37-year-old female admitted with left knee cellulitis and concern for septic arthritis. She is doing much better today. Knee pain is much improved. She feels like the swelling is improved. Review of Systems All systems reviewed & are unremarkable except as noted in HPI & below. Physical Exam . Physical examination left knee reveals the puncture wound to be scabbed over. I detect any real knee effusion today. She can do a good straight leg raise. Range of motion 0 to 90 degrees with fairly minimal pain. Minimal cellulitis. She is neurologically intact. Results & Data Results & Data Laboratory Results . Culture results are no growth to date Diagnostic Findings . PG Care Time/CCT Total # of Minutes Spent Total Time Spent with Patient: Total time spent is greater than 50% in coordination of care (as documented) at patient's floor/unit and/or counseling patient: Coding Level of Care Code 57693 SUB INP/OBS CARE 2/35MIN Diagnoses Animal scratch T14.8XXA Acute pain of left knee M25.562 Cellulitis of knee, left L03.116
[2022-11-01] MEDS: LORATADINE 10 MG TAB PO SCH (08:24)
[2022-11-01] MEDS: PRENATAL VITAMIN 1 TAB PO SCH (08:24)
--- NOTE | 2022-11-01 13:16 | Discharge Summary ---
Date of Service November 01, 2022 Admission HPI Per Admitting Provider 37-year-old female past medical significant for hypertriglyceridemia, recurrent UTI, 34-week comes because of left knee infection. On October 28 her rooster struck her with a spur and scratched her left knee on the lateral aspect of the knee and on the popliteal region and she was in the ER. At that time x-ray was okay and there was low suspicion of infection and being no antibiotic was prescribed and she was advised to follow closely with the PCP. Comes back today because of some erythema to the left knee and painful movements. The knee was aspirated in the ER today and synovial WBC was 20,000. Ortho was notified by ER. ER after speaking with pharmacy decided to give IV cefepime and IV clindamycin. Patient is able to ambulate okay. Denies any fevers. Denies any other complaints. Resting comfortably and hemodynamically stable. Denies any headache or dizziness. No earache or runny nose or sore throat or cough. No nausea. No chest pain or shortness of breath. No abdominal pain. Normal bowel and bladder movements. Admission Exam Per Admitting Provider General- Not in distress Head- atraumatic Eyes- PERRL ENT- oropharynx clear Neck- supple, no JVD. Lungs- clear to auscultation and percussion Heart- regular rhythm; no murmur, no gallop, no rub appreciated Abdomen- normal bowel sounds, soft, 34 week Extremities- Left knee is swollen and slightly erytematous. healing small puncture wounds seen on lateral aspect and in popliteal region Neuro- alert, oriented x 3 Non focal. Skin- warm & dry Principal Diagnosis Cellulitis of left knee. Discharge Exam General- Not in distress Lungs- clear to auscultation and percussion Heart- regular rhythm; no murmur, no gallop, no rub appreciated Abdomen- normal bowel sounds, soft, 34 week Extremities-swelling improved compared to previous day. No erythema noted. Healing small puncture wounds seen on lateral aspect and in popliteal region Neuro- alert, oriented x 3 Non focal. Skin- warm & dry Discharge Data Allergies Allergy/AdvReac Type Severity Reaction Status Date / Time penicillin V Allergy Intermediate RASH Verified 10/19/22 10:03 Consultations 10/31/22 08:00 Consult Obstetrics Routine Consult Orthopedic Surgery Routine Hospital Course (1) Acute pain of left knee: (2) Animal scratch: (3) Cellulitis of knee, left: Plan 37-year-old female presents with left knee infection. On October 28 the rooster struck with her spur and scratched her left knee. On presentation to the ED, patient was afebrile, normotensive and saturating well on room air. No leukocytosis. Patient underwent joint aspiration; WBC count of 20,000 with 74% neutrophils. ESR elevated 27 and CRP of 9.97. Patient was admitted to telemetry floor for IV antibiotics. She was started on IV cefepime and clindamycin. Orthopedic was consulted for comanagement. Orthopedic evaluated the patient; no concern for septic arthritis. Patient's symptoms improved gradually throughout the hospitalization with improvement in swelling and erythema. Gram stain and culture from the aspiration did not show any growth Patient was recommended to be discharged on Augmentin for 10 days as per orthopedic. However, patient has history of penicillin allergy. She was prescribed Keflex for 10 days. Patient to follow-up with her PCP. Please note the above document was generated using voice recognition software. It may contain grammatical, syntax or spelling errors. Any formal questions or concerns about the content, text or information contained within the body of this dictation should be directly addressed to the provider for clarification Total Time Total Time Spent Total Time Spent (In Minutes): 45 Total Time Includes: Examination of the Patient, Discharge Planning, Medication Reconciliation, Communication With Other Providers and Other Discharge Plan Discharge Items Patient Disposition: Home - Self-Care Reason For Visit: LEFT KNEE INFECTION Discharge Diagnosis: Left knee cellulitis Activity: Resume your previous activity Non-emergency contact: Primary Care Provider Call non-emergency contact if: you have any medication questions Follow-up/Referrals: Meggan Araujo DO [Primary Care Provider] - Diet: Regular Addtl Attending Provider Instructions: You were admitted to the hospital with superficial infection of the knee. You were evaluated by Dr. Brice from Orthopedics; no concern of septic arthritis. You are prescribed Augmentin 875 mg to be taken twice daily for 10 days. An appointment will be set up with your PCP for sometime next week. Pending Studies at Discharge: No Stand-Alone Forms: [employer], Smoking Cessation Medications and DC Order Prescriptions: New cephalexin 500 mg capsule 500 mg PO Q6H 10 Days Qty: 40 0RF Continued prenat.vits,reinaldo,cbc-epid-qqjwe Tablet 1 tab PO DAILY vitamin B complex PO albuterol sulfate 90 mcg/actuation HFA aerosol inhaler inhalation epinephrine [EpiPen] 0.3 mg/0.3 mL auto-injector 0.3 mg IM Q15M PRN (Reason: anaphylaxis) Qty: 2 0RF Rx Instructions: until response diphenhydramine HCl [Benadryl] 25 mg Capsule 25 mg PO DIRECTED PRN (Reason: NEEDED) loratadine [Claritin] 10 mg Tablet 10 mg PO DAILY Discharge Orders: Discharge Order (Routine); Ordered 11/01/22 Ordered By: Ra Pérez Admission Data Admit Date/Time: 10/30/22 20:08 Attending Provider: Ra Pérez Admit Provider: Reggie Liriano Primary Care Provider: Meggan Araujo Other Providers: Jes Barber ; Martir Alvares ; Sarah Castillo ; Elma Rodgers ; Emma Shaw ; Paresh Sanchez ; Soraya Echevarria ; Julio Watson ; Rosa Beltre ; Cecy Birmingham ; Scooby Crawford ; Minh Brice Other Interventions: Discharge Summary Assessment (RN) Last Done: 11/01/22 13:28
[2022-11-04 17:06] LABS: Lyme DNA PCR CSF or Synovial Not Detected (Not Detected)
== END 2022-11-01 16:32 | disposition home or self-care (01) ==
LOC: ED 13:38 → 2N 20:08 → INTOOBSV 20:08 → 2N 20:48
DX: O99.713 Diseases of the skin and subcutaneous tissue complicating pregnancy, third trimester; W61.32XA Struck by chicken, initial encounter; Z88.0 Allergy status to penicillin; Z3A.34 34 weeks gestation of pregnancy; O99.891 Other specified diseases and conditions complicating pregnancy; L03.116 Cellulitis of left lower limb; M25.462 Effusion, left knee

== ENCOUNTER 2022-12-11 10:44 | Inpatient (IN) ==
[2022-12-11] MEDS ORDERED: LIDOCAINE 1% LOCAL 20 ML VIAL INFIL PRN (14:28)
[2022-12-11] MEDS ORDERED: OXYTOCIN 30 UNITS/500 ML BAG IV PRN ×2 (14:28→14:30)
--- NOTE | 2022-12-11 14:31 | History & Physical Report ---
Date of Service December 11, 2022 Assessment & Plan (1) Encounter for supervision of normal in multigravida, antepartum: (2) Post-dates : Plan admit for pit induction. arom when indicated. anticipate . category one fetus. ancef for gbs. Admission and Anticipated Discharge Date Admission Date: December 11, 2022 History of Present Illness Chief Complaint: iol Primary Care Provider: Meggan Araujo DO Patient is a with iup at 40 2/7 weeks who presents to labor and delivery for postdates induction. uncomplicated. and Delivery Plans AMA *Weekly NST's @ 36wks. GBS Positive in Urine *Treat in Labor *IOL 12/11/22- Call at 11am* OB Labs: Blood Type O Positive 06/01/22 Antibody Screen NEGATIVE 06/01/22 Hemoglobin 12.1 g/dl (12.0-16.0) 11/01/22 Hematocrit 36.1 % (37.0-47.0) L 11/01/22 Mean Corpuscular Volume 91.4 fL (80.0-100.0) 11/01/22 Platelet Count 292 K/uL (130-400) 11/01/22 Rubella IgG Antibody Immune (Immune) 06/01/22 Rapid Plasma Reagin Nonreactive (Nonreactive) 06/01/22 Hepatitis B Surface Antigen Neg (Neg) 10/11/18 Hepatitis B Surface Antigen. NON-REACTIVE (NON-REACTIVE) 06/01/22 Hepatitis C Antibody (EIA) NON-REACTIVE (NON-REACTIVE) 06/01/22 HIV (1&2) Ab and P24 Ag, 4th Gener Neg (Neg) 10/11/18 HIV (1&2) Ag and Ab Confirmation NON-REACTIVE (NON-REACTIVE) 06/01/22 Glucose 1 Hour 50 gm Load 102 mg/dl (70-130) 09/17/22 Maternal Serum Alpha Fetoprotein 41.1 ng/mL 06/25/22 OB Optional Labs: Chlamydia trachomatis RNA Not Detected (NotDetected) 06/01/22 Neisseria gonorrhoeae RNA Not Detected (NotDetected) 06/01/22 Thyroid Stimulating Hormone (TSH) 2.286 uIu/ml (0.300-4.500) 03/25/22 Alpha Fetoprotein Triple Screen SEE NOTE 06/25/22 Labs Reviewed: CF Negative SMA Negative 2018 low risk panorama--akh neg cf/sma 2022--[facility] afp neg--[facility] gbs bacturia--[facility] Allergies Allergy/AdvReac Type Severity Reaction Status Date / Time penicillin V Allergy Intermediate RASH Verified 12/11/22 13:55 Home Medications Medication Instructions Recorded Confirmed Type epinephrine 0.3 mg/0.3 mL 0.3 mg (0.3 mL) IM Q15M PRN 03/30/18 12/11/22 Rx injection, auto-injector (EpiPen) anaphylaxis #2 ea diphenhydramine HCl 25 mg capsule 25 mg PO DIRECTED PRN NEEDED 03/25/22 12/11/22 History (Benadryl) loratadine 10 mg tablet (Claritin) 10 mg PO DAILY 03/25/22 12/11/22 History albuterol sulfate 90 mcg/actuation puff inhalation DAILY PRN with 05/26/22 12/10/22 History aerosol inhaler asthma flare prenat.vits,reinaldo,odz-hmfu-nybzi 1 tab PO DAILY 05/26/22 12/11/22 History vitamin B complex 1 PO DAILY 05/26/22 12/10/22 History Patient History Medical History 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 Endometriosis Female fertility problem Fertility testing Hx of ectopic Hx of ectopic Hx of endometriosis Hx of varicella Post term over 40 weeks (01/09/14) with history of spontaneous Urinary tract infection Surgical History History of salpingectomy for Ectopic Hx of oral surgery Family History Father Cardiac disorder Diabetes Hypertension Heart disease Other Family history non-contributory Denies family history of Ovarian cancer Breast cancer Colorectal cancer Social History Smoking Status: Never smoker Do You Dip or Chew Tobacco: No; Hx Alcohol Use: No Hx Substance Use: No Preferred Language: Bahamian Communication Ability: Effective Chassis Wirer Required: No Beliefs That Will Affect Care: None marital status: marital status details: Gianni (36) [phone] Current Living Situation: Spouse and Family Current Living Situation Comment: 3 boys and spouse, 3 dogs, current occupational status: employed current occupation: [employer] @ [employer] Feels Safe at Home: Yes Assistive Devices: Glasses OB History Past Pregnancies Del. Date GA wks Lbr Lgth wt Sex Type del Anes Place Del Prov ? Comment Unknown Aborted-Spontaneous March 2015 10/03/12 Ectopic Tried M [place], failed s/p 1 dose, went to surgery, partial L salpingectomy 01/10/14 40 8lb 7oz M Epidu ral [employer] Dr. Felder N 06/19/16 40 7lb 0oz M Epidu ral [facility] [facility] Dr. Rodgers N 05/19/19 40 7lb 4.4oz M Epi dural [employer] Swathi No Physical Exam Constitutional: WD/WN, vitals as above Gastrointestinal (Abdomen): soft, gravid, nt Psychiatric: A+Ox3, euthymic affect Genitourinary: cx--2.550/-2/mid/mod efw 8-9 efm--130s with mod variability, accels to 150s, no decels. Results & Data Vital Signs (Past 12 Hours) Vital Signs Temp Pulse Resp BP 12/11/22 14:13 37.2 C 18 12/11/22 13:53 110 H 123/76 Coding Level of Care Code None Diagnoses Encounter for supervision of normal in multigravida, antepartum Z34.80 Post-dates O48.0
[2022-12-11] MEDS ORDERED: ceFAZolin 2000MG 2,000 MG/15 ML SYR IV STA (14:39)
[2022-12-11] MEDS: LACTATED RINGER'S 1,000 ML IV PRN ×2 (15:13→20:28)
[2022-12-11 15:20] LABS: Hematocrit (blood only) 34.9 % (37.0-47.0); Mean Corpuscular Hemoglobin 29.5 pg (25.0-34.0); Mean Corpuscular Hgb Conc 34.4 g/dL (32.0-36.0); Mean Corpuscular Volume 85.7 fL (80.0-100.0); Mean Platelet Volume 9.3 fL (9.4-12.4); Platelet Count 299 K/uL (130-400); RDW Coefficient of Variation 14.8 % (11.5-14.5); RDW Standard Deviation 46.1 fL (36.4-46.3); Red Blood Count 4.07 M/uL (4.20-5.40); White Blood Count 11.99 K/ul (4.8-10.8)
[2022-12-11] MEDS ORDERED: SODIUM CHLORIDE 0.9% PF INJ 10 ML VIAL ONE (18:47)
[2022-12-11] MEDS ORDERED: BUPIVACAINE 0.25% PF 30 ML VIAL ONE (18:47)
[2022-12-11] MEDS ORDERED: LIDOCAINE 2%/EPINEPHRINE 1:200,000 20 ML PF ONE (18:47)
[2022-12-11] MEDS ORDERED: fentaNYL citrate PF 100 MCG/2 ML VIAL ONE (18:47)
[2022-12-11] MEDS ORDERED: ePHEDrine sulfate 50 MG/ML AMP ONE (18:47)
[2022-12-11] MEDS ORDERED: fentaNYL 2MCG/ML ROPIVACAINE 1.25MG/ML 100 ML BAG EPI ONE (18:48)
--- NOTE | 2022-12-11 19:45 | Anesthesiology Consultation ---
Date of Service December 11, 2022 Assessment & Plan Chart Review Chart Review: Acceptable Risk for Labor Epidural Consults Requested none History Height/Weight Height: 5 ft 2 in Weight: 82.372 kg Allergies Allergy/AdvReac Type Severity Reaction Status Date / Time penicillin V Allergy Intermediate RASH Verified 12/11/22 13:55 Medications Home Medications Medication Instructions Recorded Confirmed Last Taken epinephrine 0.3 mg/0.3 mL 0.3 mg (0.3 mL) IM Q15M PRN 03/30/18 12/11/22 Unknown injection, auto-injector (EpiPen) anaphylaxis #2 ea diphenhydramine HCl 25 mg capsule 25 mg PO DIRECTED PRN NEEDED 03/25/22 12/11/22 Unknown (Benadryl) loratadine 10 mg tablet (Claritin) 10 mg PO DAILY 03/25/22 12/11/22 12/11/22 prenat.vits,reinaldo,ewl-wpds-bkzok 1 tab PO DAILY 05/26/22 12/11/22 12/11/22 albuterol 90 mcg/actuation aerosol 2 mcg inhalation DAILY PRN asthma 12/11/22 12/11/22 Unknown inhaler sx Active Medications Generic Name Dose Route Start Last Admin Trade Name Freq PRN Reason Stop Dose Admin Lactated Ringer's 1,000 mls @ 125 mls/hr 12/11/22 14:28 12/11/22 18:45 Lr IV 12/13/22 14:27 999 mls/hr .Q8H PRN Infusion L&D Protocol Protocol Oxytocin 30 units in 500 mls @ 9 mls/hr 12/11/22 14:30 12/11/22 19:00 Pitocin IV 12/13/22 14:29 0.54 units/hr .Q24H PRN 9 mls/hr Labor Induction/Augmentation Titration Protocol 0.54 UNITS/HR Past Medical History Medical History 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 Endometriosis Female fertility problem Fertility testing Hx of ectopic Hx of ectopic Hx of endometriosis Hx of varicella Post term over 40 weeks (01/09/14) with history of spontaneous Urinary tract infection Past Family History Family History Father Cardiac disorder Diabetes Hypertension Heart disease Other Family history non-contributory Denies family history of Ovarian cancer Breast cancer Colorectal cancer Past Surgical History Surgical History History of salpingectomy for Ectopic Hx of oral surgery Social History Smoking Status: Never smoker Do You Dip or Chew Tobacco: No Hx Alcohol Use: No Hx Substance Use: No Physical Exam Vital Signs Last Vital Signs Temp 37.2 C 12/11/22 14:13 Pulse 84 12/11/22 19:42 Resp 18 12/11/22 14:13 BP 111/57 L 12/11/22 19:39 Pulse Ox 100 12/11/22 19:42 Testing Laboratory Results 12/11/22 14:56
[2022-12-11] MEDS ORDERED: fentaNYL 2MCG/ML ROPIVACAINE 1.25MG/ML 100 ML BAG EPI PRN (19:51)
[2022-12-11] MEDS ORDERED: fentaNYL citrate PF 100 MCG/2 ML VIAL EPI STA (19:51)
[2022-12-11] MEDS ORDERED: NALOXONE HCL 0.4 MG/1 ML VIAL/CARP IV PRN (19:51)
[2022-12-11] MEDS ORDERED: ePHEDrine sulfate 50 MG/ML AMP IV PRN (19:51)
[2022-12-11] MEDS ORDERED: SODIUM CHLORIDE 0.9% PF INJ 10 ML VIAL EPI STA (19:51)
[2022-12-11] MEDS ORDERED: diphenhydrAMINE 50 MG/ML VIAL IV PRN (19:51)
[2022-12-11] MEDS ORDERED: BUPIVACAINE 0.25% PF 30 ML VIAL EPI STA (19:51)
[2022-12-11] MEDS ORDERED: BUPIVACAINE 0.25% PF 30 ML VIAL EPI PRN (19:51)
[2022-12-11] MEDS ORDERED: LIDOCAINE 2%/EPINEPHRINE 1:200,000 20 ML PF EPI STA (19:51)
[2022-12-11] MEDS ORDERED: SODIUM CHLORIDE 0.9% PF INJ 10 ML VIAL EPI PRN (19:51)
[2022-12-11] MEDS ORDERED: fentaNYL citrate PF 100 MCG/2 ML VIAL EPI PRN (19:51)
[2022-12-11] MEDS ORDERED: LIDOCAINE 2% MPF LOCAL 5 ML VIAL EPI PRN (19:51)
[2022-12-11] MEDS ORDERED: ROPIVACAINE 0.5% PF 5 MG/ML 20 ML VIAL EPI PRN (19:51)
[2022-12-11] MEDS ORDERED: NALOXONE HCL 1 MG in SODIUM CHLORIDE 0.9% 1,000 ML IV PRN (19:51)
[2022-12-11] MEDS ORDERED: NALBUPHINE HCL INJ 10 MG/ML AMP IV PRN (19:51)
[2022-12-11] MEDS ORDERED: ceFAZolin 1000MG 1,000 MG/7.5 ML SYR IV PRN (21:37)
--- NOTE | 2022-12-11 23:46 | Labor Progress Brief Note ---
Date of Service December 11, 2022 Subjective comfortable Assessment & Plan (1) Post-dates : Plan continue current management. fetus category one. anticipate . Admission and Anticipated Discharge Date Admission Date: December 11, 2022 Physical Exam Physical Exam: cx--4-5/80/-2 arom forebag toco--q2-3min, pit at 17 efm--130s with mod variabiltiy, accels present, no decles Results & Data Vital Signs (Past 12 Hours) Vital Signs Temp Pulse Resp BP Pulse Ox 12/11/22 14:13 37.2 C 18 12/11/22 23:37 99 12/11/22 23:37 77 12/11/22 23:32 99 12/11/22 23:32 83 12/11/22 23:31 75 12/11/22 23:31 100/57 L 12/11/22 23:27 98 12/11/22 23:27 81 12/11/22 23:22 98 12/11/22 23:22 84 12/11/22 23:17 100 12/11/22 23:17 84 12/11/22 23:12 98 12/11/22 23:12 77 12/11/22 23:07 99 12/11/22 23:07 79 12/11/22 23:02 99 12/11/22 23:02 84 12/11/22 23:03 83 12/11/22 23:03 109/64 12/11/22 22:57 98 12/11/22 22:57 83 12/11/22 22:52 99 12/11/22 22:52 91 H 12/11/22 22:47 100 12/11/22 22:47 92 H 12/11/22 22:42 99 12/11/22 22:42 86 12/11/22 22:37 99 12/11/22 22:37 91 H 12/11/22 22:33 93 H 12/11/22 22:33 130/69 12/11/22 22:32 100 12/11/22 22:32 95 H 12/11/22 22:27 100 12/11/22 22:27 84 12/11/22 22:22 99 12/11/22 22:22 95 H 12/11/22 22:00 16 12/11/22 22:00 37.0 C 16 12/11/22 22:17 100 12/11/22 22:17 94 H 12/11/22 22:17 82 12/11/22 22:17 121/65 12/11/22 22:12 100 12/11/22 22:12 82 12/11/22 22:07 100 12/11/22 22:07 89 12/11/22 22:02 99 12/11/22 22:02 81 12/11/22 22:01 91 H 12/11/22 22:01 128/67 12/11/22 21:57 100 12/11/22 21:57 80 12/11/22 21:52 100 12/11/22 21:52 77 12/11/22 21:47 100 12/11/22 21:47 86 12/11/22 21:42 100 12/11/22 21:42 80 12/11/22 21:38 90 12/11/22 21:38 79 12/11/22 21:39 78 12/11/22 21:39 109/59 L 12/11/22 21:37 100 12/11/22 21:37 74 12/11/22 21:32 100 12/11/22 21:32 81 12/11/22 21:29 79 12/11/22 21:29 117/63 12/11/22 21:27 100 12/11/22 21:27 82 12/11/22 21:22 100 12/11/22 21:22 76 12/11/22 21:19 83 12/11/22 21:19 111/62 12/11/22 21:17 100 12/11/22 21:17 82 12/11/22 21:12 99 12/11/22 21:12 77 12/11/22 21:10 87 L 12/11/22 21:10 93 H 12/11/22 21:07 100 12/11/22 21:07 84 12/11/22 21:02 99 12/11/22 21:02 86 12/11/22 20:58 86 12/11/22 20:58 111/59 L 12/11/22 20:57 100 12/11/22 20:57 71 12/11/22 20:52 100 12/11/22 20:52 83 12/11/22 20:48 82 12/11/22 20:48 117/58 L 12/11/22 20:47 100 12/11/22 20:47 92 H 12/11/22 20:42 100 12/11/22 20:42 89 12/11/22 20:40 82 12/11/22 20:40 125/57 L 12/11/22 20:37 100 12/11/22 20:37 79 12/11/22 20:32 100 12/11/22 20:32 87 12/11/22 20:28 84 12/11/22 20:28 115/58 L 12/11/22 20:27 100 12/11/22 20:27 82 12/11/22 20:22 100 12/11/22 20:22 81 12/11/22 20:19 81 12/11/22 20:19 118/55 L 12/11/22 20:17 100 12/11/22 20:17 82 12/11/22 20:12 100 12/11/22 20:12 82 12/11/22 19:05 16 12/11/22 19:05 36.8 C 16 12/11/22 20:09 83 12/11/22 20:09 108/58 L 12/11/22 20:07 100 12/11/22 20:07 82 12/11/22 20:02 100 12/11/22 20:02 86 12/11/22 19:59 78 12/11/22 19:59 118/61 12/11/22 19:57 100 12/11/22 19:57 81 12/11/22 19:52 100 12/11/22 19:52 82 12/11/22 19:48 83 12/11/22 19:48 112/57 L 12/11/22 19:47 100 12/11/22 19:47 85 12/11/22 19:42 100 12/11/22 19:42 84 12/11/22 19:39 88 12/11/22 19:39 111/57 L 12/11/22 19:37 100 12/11/22 19:37 103 H 12/11/22 19:37 96 H 12/11/22 19:37 120/83 12/11/22 19:35 93 H 12/11/22 19:35 130/72 12/11/22 19:32 100 12/11/22 19:32 102 H 12/11/22 19:32 125/59 L 12/11/22 19:30 89 12/11/22 19:30 121/59 L 12/11/22 19:30 88 L 12/11/22 19:30 92 H 12/11/22 19:28 93 H 12/11/22 19:28 114/59 L 12/11/22 19:27 100 12/11/22 19:27 95 H 12/11/22 19:26 100 H 12/11/22 19:26 132/64 12/11/22 19:24 112 H 12/11/22 19:24 138/81 12/11/22 19:22 100 12/11/22 19:22 93 H 12/11/22 19:22 135/73 12/11/22 19:21 87 12/11/22 19:21 138/73 12/11/22 19:20 87 12/11/22 19:20 134/70 12/11/22 19:17 100 12/11/22 19:17 90 12/11/22 19:12 100 12/11/22 19:12 88 12/11/22 19:07 100 12/11/22 19:07 89 12/11/22 19:08 82 12/11/22 19:08 132/71 12/11/22 19:02 100 12/11/22 19:02 80 12/11/22 18:57 99 12/11/22 18:57 86 12/11/22 17:16 77 12/11/22 17:16 119/77 12/11/22 16:32 79 12/11/22 16:32 129/60 12/11/22 13:53 110 H 123/76 Coding Level of Care Code None Diagnoses Post-dates O48.0
[2022-12-12] MEDS: LACTATED RINGER'S 1,000 ML IV PRN (00:46)
--- NOTE | 2022-12-12 01:30 | Labor Progress Brief Note ---
Date of Service December 12, 2022 Subjective starting to feel some pressure in her bottom Assessment & Plan (1) Post-dates : Plan anticipate vaginal delivery. fetus reassuring. Admission and Anticipated Discharge Date Admission Date: December 11, 2022 Physical Exam Physical Exam: cx--8/100/-1 toco--q2-3min, efm--130s wtih mod varibiltiy, early with contractions. Results & Data Vital Signs (Past 12 Hours) Vital Signs Temp Pulse Resp BP Pulse Ox 12/11/22 14:13 37.2 C 18 12/12/22 01:23 81 100 12/12/22 01:18 91 H 99 12/12/22 01:16 79 106/57 L 12/12/22 01:13 77 98 12/12/22 01:08 86 99 12/12/22 01:03 86 100 12/12/22 01:01 81 103/57 L 12/12/22 00:58 87 99 12/12/22 00:53 85 99 12/12/22 00:48 82 99 12/12/22 00:47 82 108/55 L 12/12/22 00:43 79 98 12/12/22 00:38 87 99 12/12/22 00:33 100 H 99 12/12/22 00:31 85 102/61 12/12/22 00:28 88 96 12/12/22 00:23 84 96 12/12/22 00:18 87 95 12/12/22 00:16 84 108/62 12/12/22 00:13 87 96 12/12/22 00:08 83 98 12/12/22 00:02 83 129/62 12/11/22 23:57 99 12/11/22 23:57 100 H 12/11/22 23:52 99 12/11/22 23:52 91 H 12/11/22 23:47 99 12/11/22 23:47 97 H 12/11/22 23:47 133/61 12/11/22 23:45 16 12/11/22 23:45 37.0 C 16 12/11/22 23:42 99 12/11/22 23:42 92 H 12/11/22 23:37 99 12/11/22 23:37 77 12/11/22 23:32 99 12/11/22 23:32 83 12/11/22 23:31 75 12/11/22 23:31 100/57 L 12/11/22 23:27 98 12/11/22 23:27 81 12/11/22 23:22 98 12/11/22 23:22 84 12/11/22 23:17 100 12/11/22 23:17 84 12/11/22 23:12 98 12/11/22 23:12 77 12/11/22 23:07 99 12/11/22 23:07 79 12/11/22 23:02 99 12/11/22 23:02 84 12/11/22 23:03 83 12/11/22 23:03 109/64 12/11/22 22:57 98 12/11/22 22:57 83 12/11/22 22:52 99 12/11/22 22:52 91 H 12/11/22 22:47 100 12/11/22 22:47 92 H 12/11/22 22:42 99 12/11/22 22:42 86 12/11/22 22:37 99 12/11/22 22:37 91 H 12/11/22 22:33 93 H 12/11/22 22:33 130/69 12/11/22 22:32 100 12/11/22 22:32 95 H 12/11/22 22:27 100 12/11/22 22:27 84 12/11/22 22:22 99 12/11/22 22:22 95 H 12/11/22 22:00 16 12/11/22 22:00 37.0 C 16 12/11/22 22:17 100 12/11/22 22:17 94 H 12/11/22 22:17 82 12/11/22 22:17 121/65 12/11/22 22:12 100 12/11/22 22:12 82 12/11/22 22:07 100 12/11/22 22:07 89 12/11/22 22:02 99 12/11/22 22:02 81 12/11/22 22:01 91 H 12/11/22 22:01 128/67 12/11/22 21:57 100 12/11/22 21:57 80 12/11/22 21:52 100 12/11/22 21:52 77 12/11/22 21:47 100 12/11/22 21:47 86 12/11/22 21:42 100 12/11/22 21:42 80 12/11/22 21:38 90 12/11/22 21:38 79 12/11/22 21:39 78 12/11/22 21:39 109/59 L 12/11/22 21:37 100 12/11/22 21:37 74 12/11/22 21:32 100 12/11/22 21:32 81 12/11/22 21:29 79 12/11/22 21:29 117/63 12/11/22 21:27 100 12/11/22 21:27 82 12/11/22 21:22 100 12/11/22 21:22 76 12/11/22 21:19 83 12/11/22 21:19 111/62 12/11/22 21:17 100 12/11/22 21:17 82 12/11/22 21:12 99 12/11/22 21:12 77 12/11/22 21:10 87 L 12/11/22 21:10 93 H 12/11/22 21:07 100 12/11/22 21:07 84 12/11/22 21:02 99 12/11/22 21:02 86 12/11/22 20:58 86 12/11/22 20:58 111/59 L 12/11/22 20:57 100 12/11/22 20:57 71 12/11/22 20:52 100 12/11/22 20:52 83 12/11/22 20:48 82 12/11/22 20:48 117/58 L 12/11/22 20:47 100 12/11/22 20:47 92 H 12/11/22 20:42 100 12/11/22 20:42 89 12/11/22 20:40 82 12/11/22 20:40 125/57 L 12/11/22 20:37 100 12/11/22 20:37 79 12/11/22 20:32 100 12/11/22 20:32 87 12/11/22 20:28 84 12/11/22 20:28 115/58 L 12/11/22 20:27 100 12/11/22 20:27 82 12/11/22 20:22 100 12/11/22 20:22 81 12/11/22 20:19 81 12/11/22 20:19 118/55 L 12/11/22 20:17 100 12/11/22 20:17 82 12/11/22 20:12 100 12/11/22 20:12 82 12/11/22 19:05 16 12/11/22 19:05 36.8 C 16 12/11/22 20:09 83 12/11/22 20:09 108/58 L 12/11/22 20:07 100 12/11/22 20:07 82 12/11/22 20:02 100 12/11/22 20:02 86 12/11/22 19:59 78 12/11/22 19:59 118/61 12/11/22 19:57 100 12/11/22 19:57 81 12/11/22 19:52 100 12/11/22 19:52 82 12/11/22 19:48 83 12/11/22 19:48 112/57 L 12/11/22 19:47 100 12/11/22 19:47 85 12/11/22 19:42 100 12/11/22 19:42 84 12/11/22 19:39 88 12/11/22 19:39 111/57 L 12/11/22 19:37 100 12/11/22 19:37 103 H 12/11/22 19:37 96 H 12/11/22 19:37 120/83 12/11/22 19:35 93 H 12/11/22 19:35 130/72 12/11/22 19:32 100 12/11/22 19:32 102 H 12/11/22 19:32 125/59 L 12/11/22 19:30 89 12/11/22 19:30 121/59 L 12/11/22 19:30 88 L 12/11/22 19:30 92 H 12/11/22 19:28 93 H 12/11/22 19:28 114/59 L 12/11/22 19:27 100 12/11/22 19:27 95 H 12/11/22 19:26 100 H 12/11/22 19:26 132/64 12/11/22 19:24 112 H 12/11/22 19:24 138/81 12/11/22 19:22 100 12/11/22 19:22 93 H 09/01/23 19:22 135/73 12/11/22 19:21 87 12/11/22 19:21 138/73 12/11/22 19:20 87 12/11/22 19:20 134/70 12/11/22 19:17 100 12/11/22 19:17 90 12/11/22 19:12 100 12/11/22 19:12 88 12/11/22 19:07 100 12/11/22 19:07 89 12/11/22 19:08 82 12/11/22 19:08 132/71 12/11/22 19:02 100 12/11/22 19:02 80 12/11/22 18:57 99 12/11/22 18:57 86 12/11/22 17:16 77 12/11/22 17:16 119/77 12/11/22 16:32 79 12/11/22 16:32 129/60 12/11/22 13:53 110 H 123/76 Coding Level of Care Code None Diagnoses Post-dates O48.0
[2022-12-12] MEDS ORDERED: DIPHTHERIA/TETANUS/PERTUSSIS Vaccine (Tdap, Age 7+yrs) 0.5mL SYR/VL IM ONE (02:06)
[2022-12-12] MEDS ORDERED: bisacodyL 10 MG SUPP PR PRN (02:06)
[2022-12-12] MEDS ORDERED: BENZOCAINE 20% SPRY 85 APPLN/85 GM CAN EXT PRN (02:06)
[2022-12-12] MEDS ORDERED: IBUPROFEN 600 MG TAB PO PRN (02:06)
[2022-12-12] MEDS ORDERED: oxyCODONE/ACETAMINOPHEN 5mg/325mg TAB PO PRN (02:06)
[2022-12-12] MEDS ORDERED: OXYTOCIN 30 UNITS/500 ML BAG IV PRN (02:06)
[2022-12-12] MEDS ORDERED: ACETAMINOPHEN 325 MG TAB PO PRN (02:06)
[2022-12-12] MEDS ORDERED: HYDROCORTISONE ACETATE 25 MG SUPP PR PRN (02:06)
--- NOTE | 2022-12-12 02:10 | Delivery Summary ---
Vaginal Delivery Summary Date of Service December 12, 2022 Vaginal Delivery Summary and 2nd Degree LAC Pre-operative Diagnosis: at 40 3/7 iol Post-operative Diagnosis: same Procedure: pitocin induction epidural srom second degree laceration and repair EBL: 300cc Anesthesia: epidural Procedure: Patient presented to labor and delivery for iol for postdates. She underwent pitocin induction. Received and epidural and then had srom for clear fluid. She then progressed to c/c/+1. The patient pushed for one contraction to deliver a viable male in emily position. The anterior shoulder was then delivered immediately with ease. The rest of the delivered. The baby was vigorous. The nose and mouth were bulb suctioned and the infant was placed in the maternal abdomen for drying and attention. Cord was clamped and cut at one minute of life. Cord blood and segment obtained. Placenta delivered spontaneous, intact with a three vessel cord. Cervix/sulci/rectum were intact. A small second degree perineal laceration was repaired in the normal standard fashion. Hemostasis obtained with dilute pitocin and fundal massage. Apgars were 8/9. Mother and baby doing well at the end of the delivery[place] [facility] [place] Charge Delivery Type Details: and 2nd Degree LAC
--- NOTE | 2022-12-12 02:22 | Med Student Post OP Brief Note ---
Med Student Imm Post Op Note Date of Surgery December 12, 2022 Pre & Post Diagnosis Pre-Op Diagnosis: 1.Chery intrauterine at 40 weeks/2 days gestation 2. Post-date Post-Op Diagnosis: Same Procedure Procedure: 1.Pitocin Induction 2. Epidural 3. SROM 4. Vaginal Delivery 5.Second degree perineal tear repair with 3-0 vicryl in normal fashion Procedure Description: The patient was dilated to a 10 and rapidly labored down, when she began feeling pressure to push. The perineum was protected. She began pushing and delivered the baby in about 3 minutes.The infants head was first delivered with contraction force and pushing. The head was in the right occiput anterior (CHRISTOPH) position. There was no nuchal cord. The shoulders and body were delivered with contraction force and pushing, with no difficulty, and the was placed on the maternal abdomen. The baby's mouth was suctioned upon delivery. The sex was identified as male. was making vigorous movements and respiratory efforts. The cord was double clamped, then cut by the medical student. Cord blood was collected. The uterus was massaged. The placenta was delivered spontaneously with mild traction on the umbilical cord and external pressure on the uterine fundus. The placenta was noted to be intact with a 3- vessel cord. The cervix, vagina, and perineum were inspected, and a 2nddegree perineal tear was identified. This laceration was repaired with 3-0 vicryl in normal fashion. scores of infant were 8 and 9 at 1 and 5 minutes respectively, and patient was doing well post-delivery and laceration repair. Please see ob MD note. Surgeon Dr. Sarah Castillo MD Bioinformaticist Liz Ford, 3 Estimated Blood Loss 300 mL Findings Placenta: Spontaneous and intact with a 3-vessel cord. Anesthesia Type Epidural Complications None Disposition Stable mom and baby post delivery.
[2022-12-12 07:12] LABS: Hemoglobin 11.7 g/dl (12.0-16.0)
[2022-12-12] MEDS: DOCUSATE SODIUM 100 MG CAP PO SCH ×3 (08:22→21:40)
[2022-12-12] MEDS: PRENATAL VITAMIN 1 TAB PO SCH (08:23)
--- NOTE | 2022-12-12 09:21 | Anesthesia Procedure Note ---
Date of Service December 12, 2022 Anesthesia Post Epidural Note Vital Signs Vital Signs: Temp Pulse Resp BP Pulse Ox O2 Del Method 36.7 C 80 16 120/81 97 Room Air 12/12/22 08:20 12/12/22 08:20 12/12/22 08:20 12/12/22 08:20 12/12/22 08:20 12/12/22 08:20 Pain Intensity Perineal: Pain Intensity: 2 Notes Mental Status: alert / awake / arousable Nausea / Vomiting: adequately controlled Pain: improving with treatment Airway Patency, RR, SpO2: stable & adequate BP & HR: stable & adequate Hydration State: stable & adequate Neuraxial Anesthesia: sensory block resolved Anesthetic Complications: no major complications apparent and Pt Satisfied with anesthetic care Epidural: Removed without complications and With tip intact
[2022-12-13] MEDS: PRENATAL VITAMIN 1 TAB PO SCH (08:00)
[2022-12-13] MEDS: DOCUSATE SODIUM 100 MG CAP PO SCH (08:02)
--- NOTE | 2022-12-13 10:13 | Obstetrical Progress Note ---
Date of Service December 13, 2022 Assessment & Plan (1) Encounter for care and examination after delivery: Day 1 status post vaginal delivery. Doing well. Stable for discharge Subjective Ambulation: ambulating normally Voiding: no voiding problems Passing Gas:: Yes Diet Tolerance:: regular diet Lochia:: Moderate Feeding Type:: breast feeding Denies any DVTs symptom Physical Exam Constitutional WD/WN, vitals as above Results & Data Vital Signs (Past 12 Hours) Vital Signs Temp Pulse Resp BP Pulse Ox O2 Del Method 12/13/22 08:00 36.5 C 90 14 130/72 99 Room Air 12/13/22 07:50 36.7 C 83 18 112/75 93 Room Air 12/13/22 01:15 36.7 C 93 H 18 126/71 97 Room Air
[2022-12-13] MEDS ORDERED: bisacodyL 5 MG TABEC PO SCH (20:00)
== END 2022-12-13 16:45 | disposition home or self-care (01) | DRG 807 ==
LOC: 4S1 13:41 → 4E2 12-12 06:40